=== PATIENT | male | born 1940 | race Caucasian/White ===

== ENCOUNTER → 2023-07-09 08:47 | Outpatient (REF) | payer OTHER, SELFPAY | LOC: WOUND 08:47 | PROVIDERS: ATTENDING PHYSICIAN Surgery Plastic and Reconstructive Surgery; REFERRING PHYSICIAN Family Medicine | DX: L89.153 Pressure ulcer of sacral region, stage 3 (principal); L89.613 Pressure ulcer of right heel, stage 3; L97.221 Non-pressure chronic ulcer of left calf limited to breakdown of skin | CPT/HCPCS: 97597; 97598; 99203 ==

== ENCOUNTER → 2023-08-19 10:27 | Outpatient (REF) | payer OTHER, SELFPAY | LOC: WOUND 10:27 | PROVIDERS: ATTENDING PHYSICIAN Surgery; REFERRING PHYSICIAN Family Medicine | DX: L89.153 Pressure ulcer of sacral region, stage 3 (principal); L89.614 Pressure ulcer of right heel, stage 4; L89.313 Pressure ulcer of right buttock, stage 3; L97.212 Non-pressure chronic ulcer of right calf with fat layer exposed | CPT/HCPCS: 11042; 11043; 11045; 11046 ==

== ENCOUNTER → 2023-08-26 13:07 | Outpatient (REF) | payer OTHER, SELFPAY | LOC: WOUND 13:07 | PROVIDERS: ATTENDING PHYSICIAN Surgery; REFERRING PHYSICIAN Family Medicine | DX: L89.153 Pressure ulcer of sacral region, stage 3 (principal); L89.614 Pressure ulcer of right heel, stage 4; L89.313 Pressure ulcer of right buttock, stage 3; L97.212 Non-pressure chronic ulcer of right calf with fat layer exposed | CPT/HCPCS: 11043 ==

== ENCOUNTER → 2023-09-02 14:13 | Outpatient (REF) | payer OTHER, SELFPAY | LOC: WOUND 14:13 | PROVIDERS: ATTENDING PHYSICIAN Surgery; REFERRING PHYSICIAN Family Medicine | DX: L89.153 Pressure ulcer of sacral region, stage 3 (principal); L89.614 Pressure ulcer of right heel, stage 4; L89.313 Pressure ulcer of right buttock, stage 3; L97.212 Non-pressure chronic ulcer of right calf with fat layer exposed | CPT/HCPCS: 11042; 11043; 87070; 87075; 87077; 87186; 87205 ==

== ENCOUNTER → 2023-09-09 09:34 | Outpatient (REF) | payer OTHER, SELFPAY | LOC: WOUND 09:34 | PROVIDERS: ATTENDING PHYSICIAN Surgery; FAMILY PHYSICIAN Family Medicine | DX: L89.153 Pressure ulcer of sacral region, stage 3 (principal); L89.614 Pressure ulcer of right heel, stage 4; L89.313 Pressure ulcer of right buttock, stage 3; L97.212 Non-pressure chronic ulcer of right calf with fat layer exposed | CPT/HCPCS: 11042; 11043; 97597; 97598 ==

== ENCOUNTER 2023-09-16 13:21 | Inpatient (IN) | payer OTHER, SELFPAY ==
[2023-09-16] VITALS (8 sets, daily range): BP systolic 108–150; BP diastolic 60–100; BMI 24.4; BMI 23.4
[2023-09-16 08:57] LABS: % Basophils 0.4 % (0-2); % Immature Granulocytes 0.7 % (0-0.5); % Lymphocytes 10.6 % (20.5-51.1); % Monocytes 16.8 % (1.7-9.3); % Neutrophils 62.5 % (42.2-75.2); Absolute Basophils 0.1 10^3/uL (0-0.2); Absolute Immature Granulocytes 0.1 10^3/uL (0-0.05); Absolute Lymphocytes 1.2 10^3/uL (1.2-3.4); Absolute Monocytes 1.9 10^3/uL (0.1-0.6); Hematocrit 32.1 % (39.0-52.0); Hemoglobin 10.5 g/dL (13.0-18.0); Mean Corp Hgb Conc. 32.7 g/dL (33.0-37.0); Mean Corpuscular Hgb 32.2 pg (27.0-31.0); Mean Corpuscular Volume 98.5 fL (80.0-94.0); Mean Platelet Volume 10.1 fL (7.4-10.4); Nucleated Red Blood Cells % 0 % (-); Platelet Count 272 10^3/uL (130-400); Red Blood Cell Count 3.26 10^6/uL (4.70-6.10); Red Cell Dist. Width 16.7 % (11.5-14.5); White Blood Cell Count 11.2 10^3/uL (4.8-10.8)
[2023-09-16 09:08] LABS: ALT (SGPT) 14 U/L (0-50); AST (SGOT) 31 U/L (17-59); Albumin 3.4 g/dl (3.5-5.0); Alkaline Phosphatase 127 U/L (38-126); Blood Urea Nitrogen 47 mg/dl (9-20); Calcium 9.7 mg/dl (8.4-10.2); Carbon Dioxide 22 mmol/L (22-30); Chloride 108 mmol/L (98-107); Estimated Creatinine Clearance 24 ml/min; Glucose 103 mg/dl (70-99); Potassium 4.6 mmol/L (3.5-5.1); Sodium 134 mmol/L (135-145); Total Bilirubin 0.6 mg/dl (0.2-1.3); Total Protein 6.2 g/dl (6.3-8.2); eGFR 29.17
[2023-09-16 09:45] LABS: Urine Albumin 1+ (Neg - Trace); Urine Bilirubin Negative (Negative); Urine Character Clear (Clear); Urine Color Yellow; Urine Glucose Negative (Negative); Urine Ketone Negative (Negative); Urine Leukocyte Negative (Negative); Urine Nitrite Negative (Negative); Urine Occult Blood 2+ (Negative); Urine Urobilinogen Negative (Neg - 1+)
[2023-09-16] MEDS: NSS 500 IV (10:05)
[2023-09-16 10:23] LABS: Urine Calcium Oxalate Crystals Present; Urine Mucus Few; Urine Squamous Cell 0-2 /LPF (Few)
[2023-09-16 10:24] LABS: Urine Bacteria Few (Negative); Urine White Cell 0-2 /HPF (0-5)
--- NOTE | 2023-09-16 12:03 | ED.GENMED ---
History of Present Illness
General
Chief Complaint: Weakness
Source: patient, spouse and family
Exam Limitations: none
Time Seen by Provider: 09/16/23 08:06
Nursing documentation reviewed up to this point in time: agreed with
Travel History
Have you had any contact with someone who has COVID-19?: No
Do you have any symptoms of coronavirus? Fever > 100 degrees, chills, cough, shortness of breath, sore throat, loss of taste or smell, muscle aches, or headache?: No
History of Present Illness
History of Present Illness:
82-year-old male with past medical history of hypertension, recent foot infection currently on vancomycin and cefepime via PICC line over the past 2 months presenting to the emergency department today with concerns of generalized weakness fatigue
which caused him to fall today also hit his head did not lose consciousness denies nausea vomiting does have Yuen bag symptoms denies fevers denies any noticeable worsening appearance of his foot wound.
Past History
Past History
ED Past Medical History: GERD, HTN and Other (GI bleed on Protonix)
Social History
Tobacco: Non-smoker
Alcohol: Daily
Personal:
Review of Systems
Review of Systems
Allergies reviewed?: Yes
All Other Systems: ROS reviewed and negative except as documented in HPI and ROS
Phy Exam
Physical Exam
Physical Exam:
GENERAL: Alert , in no apparent distress
EYE: pupils equal and reactive
NECK: Supple, no significant adenopathy.
ENT: o/p clr, mmm.
CARDIAC: Regular rate and rhythm .
LUNGS: Clear breath sounds bilaterally, no acute respiratory distress, no wheezes/rales/rhonchi
ABDOMEN: Soft, without focal tenderness, no r/g, no cvat
NEUROLOGICAL: Alert and oriented, no focal neuro deficits
SKIN: Warm and dry, skin intact.
MUSCULOSKELETAL: No edema, well perfused.
PSYCH: Normal and appropriate interaction.
Dressing of the foot clean dry and intact
Course
Orders/Labs/Results
Orders:
Orders
09/16/23 08:26
EKG [Electrocardiogram (*1)] Urgent
Reason for Study: Fatigue / Weakness
CT Head W/o Iv Contrast Urgent
Comment:
Reason For Exam: fal lhit head
09/16/23 08:27
EKG- Treatment ONCE
09/16/23 08:43
CBC/With Diff [Complete Blood Count/With Diff] Urgent
CMP [Comprehensive Metabolic Panel] Urgent
09/16/23 09:09
0.9% Sodium Chloride 500 ml [Nss] 500 ml IV BOLUS
09/16/23 09:21
Urinalysis Reflex To Culture Urgent
Date Specimen was Collected: 09/16/23
Time Specimen was Collected: 09:19
Urine Microscopic Reflex Cult Urgent
CXR Port [CR Chest Portable - 1 View] Urgent
Comment:
Reason For Exam: PICC line
Reason Study Needs to be Portable: Unable to Transport
Abnormal Lab Results
09/16/23 09/16/23
08:43 09:21
WBC 11.2 H 10^3/uL
(4.8-10.8)
RBC 3.26 L 10^6/uL
(4.70-6.10)
Hgb 10.5 L g/dL
(13.0-18.0)
Hct 32.1 L %
(39.0-52.0)
MCV 98.5 H fL
(80.0-94.0)
MCH 32.2 H pg
(27.0-31.0)
MCHC 32.7 L g/dL
(33.0-37.0)
RDW 16.7 H %
(11.5-14.5)
Abs Immat Gran (auto) 0.1 H 10^3/uL
(0-0.05)
Absolute Neuts (auto) 7.0 H 10^3/uL
(1.4-6.5)
Absolute Monos (auto) 1.9 H 10^3/uL
(0.1-0.6)
Absolute Eos (auto) 1.0 H 10^3/uL
(0-0.7)
Immature Gran % 0.7 H %
(0-0.5)
Lymphocytes % 10.6 L %
(20.5-51.1)
Monocytes % 16.8 H %
(1.7-9.3)
Eosinophils % 9.0 H %
(0-6)
Sodium 134 L mmol/L
(135-145)
Chloride 108 H mmol/L
(98-107)
BUN 47 H mg/dl
(9-20)
Creatinine 2.2 H mg/dL
(0.7-1.3)
Glucose 103 H mg/dl
(70-99)
Alkaline Phosphatase 127 H U/L
(38-126)
Total Protein 6.2 L g/dl
(6.3-8.2)
Albumin 3.4 L g/dl
(3.5-5.0)
Ur Occult Blood Reflex 2+ A
(Negative)
Urine RBC 3-6 A /HPF
(0-2)
Urine Bacteria (Reflex) Few A
(Negative)
Urine Albumin (Reflex) 1+ A
(Neg - Trace)
09/16/23 08:43
09/16/23 08:43
Vital Signs
Initial and Last Documented VS:
Initial Vital Signs
Temp Pulse Resp BP Pulse Ox
98.6 F 92 20 150/100 98
09/16/23 07:42 09/16/23 07:42 09/16/23 07:42 09/16/23 07:42 09/16/23 07:42
Last Documented Vital Signs
Temp Pulse Resp BP Pulse Ox
98.6 F 91 15 115/69 94
09/16/23 07:42 09/16/23 11:00 09/16/23 11:00 09/16/23 11:00 09/16/23 11:00
MDM/Problems Addressed
MDM/Problems Addressed:
82-year-old male presenting to the emergency department today with concerns of generalized weakness and fatigue trouble ambulating today fell hit his head denies loss of conscious denies chest pain shortness of breath on arrival here initial vital
signs normal patient no acute distress white count is 11.2 otherwise he was found to have significantly elevated creatinine level above his baseline by about double concerning for MATY was started on fluids. Otherwise no emergent findings on workup
head CT negative plan for admission due to MATY and significant generalized weakness and fatigue.
*Critical Care Note
Total Time (30-74mins, 75-104mins- exclusive of procedures): Not Applicable
ED Attending Note
-
Portions of this chart may have been created with voice recognition software.� Occasional wrong word or��sound alike� substitutions may have occurred due to the inherent limitations of voice recognition software.
Discharge Plan
Departure
Patient Disposition: Admit
Date of Disposition: 09/16/23
Time of Disposition: 12:05
Admit to: Med/Surg
Admit to doctor: Candelario
Presentation/result/management discussed w/ accepting MD/DO: Hospitalist
Patient with high blood pressure during this ER visit?: No
Condition: Good
Covid-19: Not Applicable
Discharge Problem:
MATY (acute kidney injury)
Prescriptions:
No Action
lisinopril-hydrochlorothiazide 20-12.5 mg tablet
1 tab PO DAILY
Hold Instructions: Until blood pressure greater than 140/90
gabapentin 100 mg Capsule
300 mg PO HS
oxycodone 5 mg tablet
5 mg PO Q8H PRN (Reason: Mod sev pain) Qty: 14 0RF
cefepime 2 gram recon soln
2 g IV Q12
Rx Instructions:
per : first dose 09/02/23 x 6 weeks
acetaminophen 325 mg tablet
650 mg PO QIDPRN PRN (Reason: pain )
vancomycin [Firvanq] 50 mg/mL recon soln
125 mg PO DAILY
Rx Instructions:
per : first dose 09/02/23 x 6 weeks
metoprolol succinate [Toprol XL] 25 mg tablet extended release 24 hr
12.5 mg PO BID
Dakin's Solution 0.125 % solution
1 applic topical BID
colchicine 0.6 mg capsule
0.6 mg PO QPM
pantoprazole 40 mg tablet,delayed release (DR/EC)
40 mg PO DAILY
Referrals:
Oscar Veronica DO [Family Provider] -
Interventions
Interventions:
*Risk Screen - Suicide Last Done: 09/16/23 07:42
*General Assessment Last Done: 09/16/23 07:42
*Neglect/Abuse Screening Last Done: 09/16/23 07:42
ED- Fall Risk Assessment Last Done: 09/16/23 07:42
*ED COVID-19 Vaccine History Last Done: 09/16/23 07:42
ED- Cardiac Assessment Last Done: 09/16/23 07:42
ED- Neurological Assessment Last Done: 09/16/23 07:42
ED- Pulmonary Assessment Last Done: 09/16/23 07:42
--- NOTE | 2023-09-16 12:23 | HPS.HSE ---
Addendum entered and electronically signed by Scot Cleary MD 09/16/23 13:16:
I saw and examined the patient.
The CLEAN ROOM ASSEMBLER or PA's note was reviewed and I agree with the note.
Comment: 82-year-old male who presents with chief complaints of weakness and fall.
118/62, 96, 14, 98.6 F, 99% RA
NAD, awake and alert
RRR, normal S1/S2
CTAB
CN2-12 intact, stuttering
WBC 11.2
Hb 10.5
Plt 272
Na 134, BUN 47, Cr 2.2
CT brain:
1. � No CT evidence for acute intracranial hemorrhage or scalp soft tissue hematoma.
2. � Moderate diffuse cerebral and cerebellar volume loss.
3. � Mild periventricular white matter leukoaraiosis.
4. � Small amount of layering complex fluid or hemorrhage in the posterior left sphenoid sinus.
CXR:
1. � Right upper extremity PICC line in place with the catheter tip projecting over the SVC.
2. � Moderate airspace consolidation in the basilar segments of the left lower lobe. Diagnostic possibilities are (1) left lower lobe pneumonia or (2) left lower lobe scarring/subsegmental atelectasis.
3. 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
MATY:
-Check bladder scan to determine if patient is retaining
-Check renal ultrasound
-Continue IV fluids
-Consult nephrology
-Cefepime can cause elevated BUN and creatinine and less than 1% of cases, infectious disease to see
h/o septic bursitis R shoulder:
-pt currently on IV Cefepime and PO Vanco (h/o C diff)
-Patient currently is not the best historian. He does mention that he has been on cefepime only for 3 days for a right heel wound.
-pt was seen by ID on prior admission, will c/s for abx management
Addendum entered and electronically signed by GARRETT Armenta 09/16/23 13:08:
MATY concern medication related
- Last dose of lisinopril/HCTZ was 09/15/2023 not May as patient stated
Original Note:
Family Physician
-
Family Physician: Oscar Veronica
Chief Complaint
-
Weakness, fall
History of Present Illness
82-year-old male complaining of generalized weakness with fatigue causing him to fall today at 5 AM. He reports his legs gave out when he went to stand up he denies head injury or LOC. He does report he is stumbling on his words. he denies any
fever, chills, decreased urine output, flank pain, abdominal pain, nausea, vomiting, diarrhea, chest pain, palpitations, headache, dizziness. He is currently on vancomycin and cefepime via PICC line for the past 2 months for septic bursitis of the
right shoulder.. Other past medical history includes hypertension, GI bleed, GERD, right heel/right buttocks/right calf decub ulcer July 14, 2023, pancreatic cyst, C. difficile, iron deficiency anemia
Medical History
Past Medical History
Past Medical History: Reports Other ( hypertension, pancreatic cyst, iron deficiency anemia, GERD, right heel decubitus ulcer, right buttocks, right calf ulcers, prior history of C. difficile)
Additional Past Medical History:
septic bursitis of the right shoulder June 2023
Past Surgical History: Reports Other (PICC line right upper arm)
Social History
Tobacco: Non-smoker
Alcohol: Occasional
Drug: None
Personal:
Living: With Family
Employment: Retired
Family History
Family History: Other (Mother cancer age 81 tumor on femur, father [place] age 64)
Allergies / Home Medications
Allergies reflects when Allergies were last updated in [employer].
Home Medications with original date entered in [employer]
Allergy/Medication List:
Allergies
Allergy/AdvReac Type Severity Reaction Status Date / Time
Penicillins Allergy Rash- Verified 07/02/23 12:35
tolerated
cefazolin
in 2016
Home Medications
lisinopril 20 mg-hydrochlorothiazide 12.5 mg tablet 1 tab PO DAILY Blood Pressure 06/22/22
gabapentin 100 mg capsule 300 mg PO HS Pain 04/03/23
oxycodone 5 mg tablet 5 mg PO Q8H PRN Mod sev pain #14 tabs 07/08/23
acetaminophen 325 mg tablet 650 mg PO QIDPRN PRN pain 09/16/23
cefepime 2 gram solution for injection 2 g IV Q12 Infection 09/16/23
colchicine 0.6 mg capsule 0.6 mg PO QPM Gout 09/16/23
metoprolol succinate 25 mg tablet,extended release 24 hr (Toprol XL) 12.5 mg PO BID Blood Pressure 09/16/23
pantoprazole 40 mg tablet,delayed release 40 mg PO DAILY Gastrointestinal Issue 09/16/23
sodium hypochlorite 0.125 % solution (Dakin's Solution) 1 applic topical BID right buttock & posterior leg/heel 09/16/23
vancomycin 50 mg/mL oral solution (Firvanq) 125 mg PO DAILY cdiff prophylaxis 09/16/23
Review of Systems
-
History Source: Patient
A 12 point ROS was completed and negative except as noted: Yes
Constitutional: Reports Fatigue; Denies Fever or Chills
EENT: Denies Sore Throat or Runny Nose
Respiratory: Denies Cough or Trouble Breathing
Cardiac: Denies Chest Pain, Diaphoresis, Palpitations or Syncope
Abdomen/GI: Denies Abdominal Pain, Nausea, Vomiting, Diarrhea, Bloody Stools or Black Stools
: Denies Dysuria, Frequency, Flank Pain, Incontinence, Difficulty Voiding or Urgency
Musculoskeletal: Denies Joint Pain or Edema
Skin: Reports Other (Chronic ulcers to right heel, stage I sacral decub); Denies Itching or Rash
Neurological: Reports Weakness; Denies Dizzy or Headache
Endocrine: Reports No Symptoms
Hematologic/Lymphatic: Reports No Symptoms
Psych: Reports Calm
Physical Exam
Vital Signs
Vital Signs
Temp Pulse Resp BP Pulse Ox
98.6 F 96 14 118/62 99
09/16/23 07:42 09/16/23 12:00 09/16/23 12:00 09/16/23 12:00 09/16/23 12:00
Physical Exam
General: Comfortable and Conversant; No Pain, Fever or Chills
HEENT: NormoCephalic and Anicteric
Genito-urinary: Deferred by me
Musculoskeletal: No Clubbing, No Cyanosis, No Edema and Other (Right shoulder nontender no effusion or erythema)
Skin: Ulcers (Chronic ulcers to right heel, stage I sacral decub) and IV/Catheter Site (PICC line present right upper extremity)
Neuro: AO x 3, Nonfocal/grossly intact, No Sensory Deficits and Other (3 out of 5 weakness to lower legs when lifting in bed, speech patient stumbles on words when spoken); No Facial Droop
Psych: Calm
Laboratory Results
-
09/16/23 08:43
09/16/23 08:43
Laboratory Results
Total Bilirubin 0.6 mg/dl (0.2-1.3) 09/16/23 08:43
AST 31 U/L (17-59) 09/16/23 08:43
ALT 14 U/L (0-50) 09/16/23 08:43
Alkaline Phosphatase 127 U/L (38-126) H 09/16/23 08:43
Impression/Plan
-
Impression/plan:
Admit to MedSurg
#MATY symptomatic concern of obst process
Creat 2.2 baseline 1.1
Follow BMP
-Hold lisinopril/HCTZ hastn taken since nov
bladder scan with post void residual
- check renal ultrasound
-Consult nephro
Check MRI brain Given weakness/ altered speech
EKG: Sinus rhythm with PVCs 78 bpm, QTc 435 MS
CXR: Right upper extremity PICC line in place.
Moderate airspace consolidation in the basilar segments of the left lower lobe possible left lower lobe pneumonia and/or lower lobe scarring.
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
CT head: No acute intracranial abnormality. Moderate diffuse cerebral and cerebellar volume loss
#Mechanical fall 2/2 to weakness
Pt/Ot case mgmt consult
# HX septic bursitis of the right shoulder
-Continue cefepime 2 g IV every 12 hours and oral vancomycin 125 mg via PICC line
-Continue oxycodone 5 mg every 8 hours as needed, gabapentin 300 mg at bedtime
- COnsult I/D
#Chronic anemia macrocytic
#Hx iron deficiency
Hgb 10.5 baseline appears 9.6
#GERD
#Hx GI bleed
-Continue Protonix 40 mg daily
#Gout
-Continue colchicine
DVT prophylaxis
Subcu heparin
DNR
--- NOTE | 2023-09-16 14:30 | CON.ID ---
Consultation
-
Date/Time Consultation Requested: 09/16/23 13:01
Date/Time Consultation Performed: 09/16/23 14:31
Requesting Provider: Vicente
Performing Provider: Dr Gagnon
Reason for Consultation: matilda is on iv abx x 2 months septic bursitis
Chief Complaint / Past History
Chief Complaint
weakness, fall
History of Present Illness
Mr Espinoza is an 82 year old male with history notable for multiple decubiti of the buttock, right nair and right heel, C difficile.
On 08/28 he was seen by my partner Dr Trice Almanza for right heel wound, a superficial cultures in June (about 1 month before) grew pseudomonas, he was referred to the wound care center, xray with concern for possible osteomyelitis, when seen in
ID clinic 08/28 wound with thick light green exudate and surrounding erythema, an MRI was done 08/26 'Severe active osteomyelitis throughout the majority of the calcaneus with overlying heel ulceration. Findings highly suggestive of tibiotalar joint
septic arthritis with likely acute on chronic destructive change' he was planned for a course of cefepime - received the first dose 08/29/23. last outpatient BMP was 09/09 and Cr was 0.95 at that time.
Then today he began to complain of weakness, fatigue. At 5 am he legs gave out when he went to stand - no loss of consciousness. Having difficulty concentrating and jerky movements. Denies any fever, chills, decreased urine output, flank pain,
abdominal pain, nausea, vomiting, diarrhea, chest pain, palpitations, headache, dizziness. Since arrival here he has been afebrile, bp stable, wbc 11.2, hgb 10.5, plt 272 down from 464 previously, eos 9.0% for AEC of 1000, Cr now 2.2 from baseline
of 1.2, t bili 0.6, ast 31, alt 14, alk phos 127, UA negative, renal US: unremarkable, cxr: PICC in plae - LLL pneumonia vs atelectasis/scarring, CT head: Small amount of layering complex fluid or hemorrhage in the posterior left sphenoid sinus.
2/ aerobic culture: pseudomonas, citrobacter, e faecalis and moderate mixed anaerobes, currently on cefepime and oral vancomycin, ID is consulted for assistance with management.
Past History
Additional Past Medical History:
hypertension, pancreatic cyst, iron deficiency anemia, GERD, right heel decubitus ulcer, right buttocks, right calf ulcers
Additional Past Surgical History:
septic bursitis s/p IR drainage x 2
Allergy History:
Penicillins Allergy (Verified 07/02/23 12:35)
Rash- tolerated cefazolin in 2016
Medications Reviewed: Yes
Social History
Tobacco: Non-Smoker
Alcohol: Occasional
Drug: None
Family History
Family History: Not Pertinent
Review of Systems
Review of Systems
General: Negative Fever or Chills
All systems: All other systems were reviewed and were negative
Vital Signs
Temp Pulse Resp BP Pulse Ox
98.6 F 96 14 118/62 99
09/16/23 07:42 09/16/23 12:00 09/16/23 12:00 09/16/23 12:00 09/16/23 12:00
Physical Exam
Physical Exam
Constitutional: No Acute Distress
Cardiovascular: Regular Rate and S1/S2; Negative Murmur or Rub
Pulmonary: Clear and Symmetric; Negative Wheezes, Rales or Rhonchi
Gastrointestinal: Soft, Non Tender, Non Distended and Normal Bowel Sounds
Skin: Warm and Dry; Negative Rash or Jaundice
Wound: Other (R ankle - probe to bone centrally- otherwise granulation tissue, some slough - no eschar; buttocks - granulation tissue - no erythema, warmth, tenderness or drainage)
Lab / Diagnostic Study Results
09/16/23 08:43
09/16/23 08:43
Abs Immat Gran (auto) 0.1 10^3/uL (0-0.05) H 09/16/23 08:43
Absolute Neuts (auto) 7.0 10^3/uL (1.4-6.5) H 09/16/23 08:43
Absolute Lymphs (auto) 1.2 10^3/uL (1.2-3.4) 09/16/23 08:43
Absolute Monos (auto) 1.9 10^3/uL (0.1-0.6) H 09/16/23 08:43
Absolute Basos (auto) 0.1 10^3/uL (0-0.2) 09/16/23 08:43
Immature Gran % 0.7 % (0-0.5) H 09/16/23 08:43
Neutrophils % 62.5 % (42.2-75.2) 09/16/23 08:43
Lymphocytes % 10.6 % (20.5-51.1) L 09/16/23 08:43
Monocytes % 16.8 % (1.7-9.3) H 09/16/23 08:43
Eosinophils % 9.0 % (0-6) H 09/16/23 08:43
Basophils % 0.4 % (0-2) 09/16/23 08:43
Ur Squamous Epith Cells 0-2 /LPF (Few) 09/16/23 09:21
Assessment / Plan
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
Eosinophilia
- on outpatient course of cefepime x6 weeks from 08/29/[address] Almanza
- last outpatient BMP was 09/09 and Cr was 0.95 at that time, AEC at that time 0.9
- AEC today 1000
- check urine eosinophils
- switched cefepime to meropenem renally dosed
- maintain PICC line
- wound care consult
- follow clinically
--- NOTE | 2023-09-16 16:36 | WOUNDNOTE ---
JUDITH GRIMALDO note: Patient admitted with fall, weakness
See H&P for complete history.
PMH:r rotator cuff tear, R shoulder bursitis with drainage in May, frequent falls, HTN,anemia, C diff, Pneumonia and unstageable PI wounds on R buttock, posterior leg and heel.
Wound Location and type/assessment: Patient admitted with: Unstageable PI wounds on R buttock, and right heel. Patient follows as outpatient at [facility] and ID. DILLAN Segovia recently completed appropriate wound care and all dressings maintained. Reviewed
pics from previous admissions and right posterior leg wounds are now closed. Right heel likely stage 4 with osteo and some pink tissue. Buttock has improved since prior assessment. Per , patient increasing weak, often confused. Intake good.
Appetite: Good, encouraged protein in diet.
Pressure redistribution devices in place: Static air overlay added to bed. Keep right heel off-loaded with air cushion or pillow under the calf (patient declines use of boot).
Plan: Continue daily dressing changes as ordered by [facility] (see orders). SPD called by this travel writer and Hydrogel ordered to patient room. Will confirm orders with hospitalist. DILLAN Segovia updated.
Updated care plan and will follow as needed.
Note to case management of equipment requested for discharge:air mattress.
Recommend follow up at wound care center upon discharge.
[2023-09-16] MEDS: MERREM 500 MG IV (17:19)
[2023-09-16] MEDS: STERILE WATER FOR INJECTION 10 ML IV (17:20)
[2023-09-16] MEDS: COLCHICINE 0.599999999999999978 MG PO (17:21)
[2023-09-16] MEDS: NSS 1000 IV (17:24)
--- NOTE | 2023-09-16 17:47 | W.CON.NEPH ---
Consultation
-
Date/Time Consultation Requested: 09/16/23 1300
Date/Time Consultation Performed: 09/16/23 1800
Requesting Provider: Scot Hemphill
Performing Provider: Rupal Santizo
Reason for Consultation: MATY
Medical History
-
Chief Complaint: s/p fall found MATY
History of Present Illness:
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
cefepime on 08/29/23 for pseudomonas grew from wound cultures presented with complaining of generalized weakness with fatigue causing him to fall today at 5 AM.� he denies head injury or LOC.�His baseline cr ws 0.9-1.1 and today noted at 2.2 hence
nephro consult.
note dto have jerky movements.� Denies any fever, chills, dysuria, abdominal pain, nausea, vomiting, diarrhea, chest pain, dizziness. �
Past Medical History
septic bursitis of the right shoulder June 2023, hypertension, pancreatic cyst, iron deficiency anemia, GERD, right heel decubitus ulcer, right buttocks, right calf ulcers, prior history of C. difficile
Social History
Tobacco: Non-Smoker
Alcohol: Occasional
Living: With Family
Employment: Retired
Family History
Mother cancer age 81 tumor on femur, father [place] age 64
Allergies / Home Medications
Allergy/AdvReac Type Severity Reaction Status Date / Time
Penicillins Allergy Rash- Verified 07/02/23 12:35
tolerated
cefazolin
in 2016
Medication Instructions Recorded Confirmed Type
lisinopril 20 1 tab PO DAILY Blood Pressure 06/22/22 09/16/23 History
mg-hydrochlorothiazide 12.5 mg
tablet
gabapentin 100 mg capsule 300 mg PO HS Pain 04/03/23 09/16/23 History
oxycodone 5 mg tablet 5 mg PO Q8H PRN Mod sev pain #14 07/08/23 09/16/23 Rx
tabs
acetaminophen 325 mg tablet 650 mg PO QIDPRN PRN pain 09/16/23 09/16/23 History
cefepime 2 gram solution for 2 g IV Q12 Infection 09/16/23 09/16/23 History
injection
colchicine 0.6 mg capsule 0.6 mg PO QPM Gout 09/16/23 09/16/23 History
metoprolol succinate 25 mg 12.5 mg PO BID Blood Pressure 09/16/23 09/16/23 History
tablet,extended release 24 hr
(Toprol XL)
pantoprazole 40 mg tablet,delayed 40 mg PO DAILY Gastrointestinal 09/16/23 09/16/23 History
release Issue
sodium hypochlorite 0.125 % 1 applic topical BID right buttock 09/16/23 09/16/23 History
solution (Dakin's Solution) & posterior leg/heel
vancomycin 50 mg/mL oral solution 125 mg PO DAILY cdiff prophylaxis 09/16/23 09/16/23 History
(Firvanq)
Review of Systems
-
All complete 12 point ROS inquired and found negative other than stated in HPI
Physical Exam
Vital Signs
Vital Signs
Temp Pulse Resp BP Pulse Ox
98.1 F 99 16 112/72 99
09/16/23 14:45 09/16/23 14:45 09/16/23 14:45 09/16/23 14:45 09/16/23 14:45
Lab Results
WBC 11.2 10^3/uL (4.8-10.8) H 09/16/23 08:43
RBC 3.26 10^6/uL (4.70-6.10) L 09/16/23 08:43
Hgb 10.5 g/dL (13.0-18.0) L 09/16/23 08:43
Hct 32.1 % (39.0-52.0) L 09/16/23 08:43
Plt Count 272 10^3/uL (130-400) 09/16/23 08:43
Sodium 134 mmol/L (135-145) L 09/16/23 08:43
Potassium 4.6 mmol/L (3.5-5.1) 09/16/23 08:43
Chloride 108 mmol/L (98-107) H 09/16/23 08:43
Carbon Dioxide 22 mmol/L (22-30) 09/16/23 08:43
BUN 47 mg/dl (9-20) H 09/16/23 08:43
Creatinine 2.2 mg/dL (0.7-1.3) H 09/16/23 08:43
eGFR 29.17 09/16/23 08:43
Glucose 103 mg/dl (70-99) H 09/16/23 08:43
Calcium 9.7 mg/dl (8.4-10.2) 09/16/23 08:43
Albumin 3.4 g/dl (3.5-5.0) L 09/16/23 08:43
Exams:� US Renal Only W/O Bladder
CPT: 56701
PROCEDURE: US Renal Only W/O Bladder
INDICATION: 82-year-old with acute kidney injury.
TECHNIQUE: Ultrasound evaluation of both kidneys was performed. Side Laster Tack grayscale and color Doppler images saved and recorded.
COMPARISON: CT from 04/03/2023
FINDINGS:
RIGHT kidney: Size measures 10.5 x 4.8 x 5.1 cm. No hydronephrosis, nephrolithiasis, or suspicious lesions.
LEFT kidney: Size measures 10.7 x 5.2 x 4.0 cm. No hydronephrosis, nephrolithiasis, or suspicious lesions.
IMPRESSION:
Unremarkable sonographic appearance of the kidneys.
CXR:
IMPRESSION:
1. � Right upper extremity PICC line in place with the catheter tip projecting over the SVC.
2. � Moderate airspace consolidation in the basilar segments of the left lower lobe. Diagnostic possibilities are (1) left lower lobe pneumonia or (2) left lower lobe scarring/subsegmental atelectasis.
3. 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
Physical Exam
General: Awake, Alert, Oriented and AOx3
HEENT: EOMI and Anicteric
Respiratory: Clear
Cardiac: S1/S2
Abdomen: Soft, Nontender and Nondistended
Musculoskeletal: No Cyanosis and Edema (rt 1+, left trace)
Neuro: Nonfocal/Grossly Intact
Assessment/Plan
-
IMP:
MATY
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
Eosinophilia
Mechanical fall 2/2 to weakness
h/o septic bursitis of the right shoulder
Hx iron deficiency anemia
GERD
Hx GI bleed
Gout
PLan:
A/w M fall, recently started on cefepime for OM
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
UA microhematuria-unchanged, no hydro on US, check U eosinophils
abx now changed to meropenem
hold ACEI, HCTZ
agree with IVF
BP stable
meds renally dose, may need to hold colchicine if cr increases
Data Reviewed
-
Radiology: Report Reviewed by me
MRI: Report Reviewed by me
Labs: Labs Reviewed by me and Discussed with Patient
[2023-09-16 18:06] LABS: Body Fluid for Eosinophils No Eosinophils seen
[2023-09-16 18:36] LABS: Urine Protein 85 mg/dl (0-12); Urine Sodium 60 mmol/L (30-90)
[2023-09-16] MEDS: TOPROL XL 12.5 MG PO (21:32)
[2023-09-16] MEDS: HEPARIN 5000 UNITS SC (21:33)
[2023-09-16] MEDS: NEURONTIN 300 MG PO (21:33)
[2023-09-17 04:57] LABS: % Basophils 0.6 % (0-2); % Eosinophils 10.6 % (0-6); % Immature Granulocytes 0.6 % (0-0.5); % Monocytes 16.2 % (1.7-9.3); Absolute Basophils 0.1 10^3/uL (0-0.2); Absolute Immature Granulocytes 0.1 10^3/uL (0-0.05); Absolute Lymphocytes 1.5 10^3/uL (1.2-3.4); Absolute Monocytes 1.5 10^3/uL (0.1-0.6); Absolute Neutrophils 5.1 10^3/uL (1.4-6.5); Hemoglobin 9.9 g/dL (13.0-18.0); Mean Corpuscular Volume 97.1 fL (80.0-94.0); Mean Platelet Volume 9.5 fL (7.4-10.4); Nucleated Red Blood Cells % 0 % (-); Platelet Count 246 10^3/uL (130-400); Red Blood Cell Count 3.09 10^6/uL (4.70-6.10); Red Cell Dist. Width 16.7 % (11.5-14.5); White Blood Cell Count 9.1 10^3/uL (4.8-10.8)
[2023-09-17 05:23] LABS: ALT (SGPT) 11 U/L (0-50); AST (SGOT) 25 U/L (17-59); Albumin 2.7 g/dl (3.5-5.0); Alkaline Phosphatase 103 U/L (38-126); Blood Urea Nitrogen 50 mg/dl (9-20); Calcium 9.8 mg/dl (8.4-10.2); Carbon Dioxide 25 mmol/L (22-30); Chloride 107 mmol/L (98-107); Estimated Creatinine Clearance 24 ml/min; Glucose 108 mg/dl (70-99); Potassium 4.1 mmol/L (3.5-5.1); Sodium 138 mmol/L (135-145); Total Bilirubin 0.5 mg/dl (0.2-1.3); Total Protein 5.4 g/dl (6.3-8.2); eGFR 29.17
[2023-09-17] MEDS: MERREM 500 MG IV ×2 (06:08→17:52)
[2023-09-17] MEDS: STERILE WATER FOR INJECTION 10 ML IV ×2 (06:08→17:52)
[2023-09-17 07:24] VITALS: BP 123/77
[2023-09-17] MEDS: TOPROL XL 12.5 MG PO ×2 (07:47→20:08)
[2023-09-17] MEDS: PROTONIX 40 MG PO (07:47)
[2023-09-17] MEDS: HEPARIN 5000 UNITS SC ×2 (07:47→20:07)
[2023-09-17] MEDS: DAKIN'S SOLUTION 0.125% 1/4 STRENGTH 473 ML TOPICAL (08:01)
[2023-09-17] MEDS: FIRVANQ 125 MG PO (08:01)
--- NOTE | 2023-09-17 09:26 | W.PN.HOSP.TC ---
Today's Communication/Plan
-
see bold
Assessment / Plan
Assessment / Plan
Gen: NAD, Awake and alert
Eyes: EOMI, PERRLA, no scleral icterus.
Neck: supple.
CV: remains RRR, +S1/S2, no m/r/g.
Resp: CTAB, no rales, wheezes, or rhonchi.
Abd: +BS, soft, NT, ND
Skin: No rashes.
Neuro: remains CN 2-12 intact, non-focal.
Psych: Normal mood and affect.
CT brain:
1. � No CT evidence for acute intracranial hemorrhage or scalp soft tissue hematoma.
2. � Moderate diffuse cerebral and cerebellar volume loss.
3. � Mild periventricular white matter leukoaraiosis.
4. � Small amount of layering complex fluid or hemorrhage in the posterior left sphenoid sinus.
CXR:
1. � Right upper extremity PICC line in place with the catheter tip projecting over the SVC.
2. � Moderate airspace consolidation in the basilar segments of the left lower lobe. Diagnostic possibilities are (1) left lower lobe pneumonia or (2) left lower lobe scarring/subsegmental atelectasis.
3. 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
MRI brain: No MRI evidence for an acute infarct.
Renal U/S: Unremarkable sonographic appearance of the kidneys.
MATY:
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
-Cefepime can cause elevated BUN and creatinine and less than 1% of cases, now on Meropenem
-renal ultrasound unremarkable as above
-Continue IVFs
-renal following
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
-also h/o septic bursitis R shoulder
-was on Cefepime (08/29/23-10/10/23) as per ID. Now switched to Meropenem.
-cont PO Vanco (h/o C diff)
Other problems:
Chronic anemia: Hb stable
GERD: cont PPI
h/o GI bleed
Gout: Continue colchicine
DNR/heparin
Anticipated Discharge: > 48 hours
Subjective/Interval History
-
Date of Service: September 17, 2023
Objective Data
-
Labs:
Laboratory Results
09/17/23
04:48
WBC 9.1
Hgb 9.9 L
Hct 30.0 L
Plt Count 246
Sodium 138
Potassium 4.1
Chloride 107
Carbon Dioxide 25
BUN 50 H
Creatinine 2.2 H
Glucose 108 H
Calcium 9.8
Total Bilirubin 0.5
AST 25
ALT 11
Alkaline Phosphatase 103
Vital Signs:
Vital Signs
Temp Pulse Resp BP Pulse Ox
97.2 F 86 18 123/77 86
09/17/23 07:24 09/17/23 07:24 09/17/23 07:24 09/17/23 07:24 09/17/23 07:24
I&O
09/16/23 09/17/23 09/18/23
06:59 06:59 06:59
Intake Total 960 / 960
Output Total 450 / 450
Balance 510 / 510
[2023-09-17 09:51] VITALS: BP 113/63; PULSE 83; O2SAT 99
[2023-09-17 09:57] VITALS: BP 113/63; PULSE 82; O2SAT 98
[2023-09-17] MEDS: NSS 1000 IV (10:15)
--- NOTE | 2023-09-17 11:14 | W.PN.NEPH.PH ---
Today's Communication / Plan
-
complete IVF
check serologies
Assessment/Plan
-
IMP:
MATY
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
Eosinophilia
Mechanical fall 2/2 to weakness
h/o septic bursitis of the right shoulder
Hx iron deficiency anemia
GERD
Hx GI bleed
Gout
PLan:
A/w M fall, recently started on cefepime for OM
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
UA microhematuria-unchanged, no hydro on US,sub nephrotic proteinuria 2.5gm/gm of cr
check serologies and paraprotein w/u
abx now changed to meropenem
hold ACEI, HCTZ
can stop IVF after current bag
BP stable
follow h/h
meds renally dose, may need to hold colchicine if cr increases
-
-
Date of Service: September 17, 2023
CC / HPI / ROS
-
Chief Complaint:
MATY
History of Present Illness:
cr no change at 2.2, BUN up 53
Bp stable
brain MRI neg
Review of Systems:
no cp or sob
pain left knee and rt shoulder
no fever
Labs
-
Labs:
WBC 9.1 10^3/uL (4.8-10.8) 09/17/23 04:48
RBC 3.09 10^6/uL (4.70-6.10) L 09/17/23 04:48
Hgb 9.9 g/dL (13.0-18.0) L 09/17/23 04:48
Hct 30.0 % (39.0-52.0) L 09/17/23 04:48
Plt Count 246 10^3/uL (130-400) 09/17/23 04:48
Sodium 138 mmol/L (135-145) 09/17/23 04:48
Potassium 4.1 mmol/L (3.5-5.1) 09/17/23 04:48
Chloride 107 mmol/L (98-107) 09/17/23 04:48
Carbon Dioxide 25 mmol/L (22-30) 09/17/23 04:48
BUN 50 mg/dl (9-20) H 09/17/23 04:48
Creatinine 2.2 mg/dL (0.7-1.3) H 09/17/23 04:48
eGFR 29.17 09/17/23 04:48
Glucose 108 mg/dl (70-99) H 09/17/23 04:48
Calcium 9.8 mg/dl (8.4-10.2) 09/17/23 04:48
Albumin 2.7 g/dl (3.5-5.0) L 09/17/23 04:48
Physical Exam
-
Vital Signs:
Vital Signs
Temp Pulse Resp BP Pulse Ox
97.2 F 86 18 123/77 86
09/17/23 07:24 09/17/23 07:24 09/17/23 07:24 09/17/23 07:24 09/17/23 07:24
Cardiovascular:: Regular rate and rhythm
Respiratory:: Bilateral: CTA
Lung Excursion:: Normal
Abdomen:: Nontender and Soft
Extremity Edema:: None: Bilateral:
Yuen Catheter: No
--- NOTE | 2023-09-17 13:56 | CM ---
Reviewed chart, met with patient to obtain information for assessment. Patient stated that he lives at home with his , son, daughter in law and grandkids. [facility]. Patient stated that his children
are creating a first floor set up for him and he hopes that it is done by mid-September. Patient relayed that his home is two stories. One step to enter.
Patient admitted to having some difficulty with ADLs and personal care. He stated that his usually assists with dressing and supervises bathing. He ambulates with a cane but has a walker for longer distances.
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 His and children are able to do it. Patient does not drive but his is able to take him to his appointments.
Patient stated that he is current with [facility] and wants tammi. Will send referral.
Patient really stated firmly that he would like to return home and does not want to go back to rehab. Will watch for PT/OT needs.
Plan: Case management will continue to follow and assist with discharge planning. Tentative Home.
[2023-09-17 15:39] VITALS: BMI 23.4
[2023-09-17 15:40] VITALS: BP 138/79
--- NOTE | 2023-09-17 16:49 | W.PN.ID1 ---
Date of Service
Date of Service: September 17, 2023
Today's Communication
continue meropenem
follow renal function
Assessment / Plan
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
Eosinophilia
AIN
- continue meropenem renally dosed for 6 week course from 08/29
- maintain PICC line
- wound care consult
- follow clinically
Chief Complaint
-: Other (osteomyelitis)
Subjective / Review of Systems
afebrile
bp stable
leukocytosis resolved
eosinophilia persists
cr stable
mrsa screen negative
urine eosinphilis negative
Vital Signs / Physical Exam
Vital Signs
Vital Signs
Temp Pulse Resp BP Pulse Ox
98.1 F 81 18 138/79 100
09/17/23 15:40 09/17/23 15:40 09/17/23 15:40 09/17/23 15:40 09/17/23 15:40
Physical Exam
Constitutional: No Acute Distress
Cardiovascular: Regular Rate and S1/S2; Negative Murmur or Rub
Pulmonary: Clear and Symmetric; Negative Wheezes or Rales
Gastrointestinal: Soft, Non Tender, Non Distended and Normal Bowel Sounds
Genito-Urinary: Negative Suprapubic Tenderness or CVA Tenderness
Skin: Warm and Dry; Negative Rash or Jaundice
Objective Data
Lab Data
Lab Results
09/17/23 04:48
09/17/23 04:48
Estimated Creat Clear 24 ml/min 09/17/23 04:48
Total Bilirubin 0.5 mg/dl (0.2-1.3) 09/17/23 04:48
AST 25 U/L (17-59) 09/17/23 04:48
ALT 11 U/L (0-50) 09/17/23 04:48
Alkaline Phosphatase 103 U/L (38-126) 09/17/23 04:48
Most recent labs reviewed.
Micro Results:
09/17/23 06:15 MRSA Screen - Pending
Nose
[2023-09-17] MEDS: TYLENOL 650 MG PO (20:27)
[2023-09-17] MEDS: NEURONTIN 300 MG PO (21:30)
[2023-09-17 23:51] VITALS: BP 116/65
[2023-09-18] MEDS: NSS IV (04:35)
[2023-09-18 05:18] LABS: % Basophils 0.7 % (0-2); % Eosinophils 12.3 % (0-6); % Immature Granulocytes 0.4 % (0-0.5); % Lymphocytes 23.4 % (20.5-51.1); % Monocytes 17.3 % (1.7-9.3); % Neutrophils 45.9 % (42.2-75.2); Absolute Basophils 0.1 10^3/uL (0-0.2); Absolute Lymphocytes 1.9 10^3/uL (1.2-3.4); Absolute Monocytes 1.4 10^3/uL (0.1-0.6); Absolute Neutrophils 3.7 10^3/uL (1.4-6.5); Hematocrit 28.8 % (39.0-52.0); Hemoglobin 9.5 g/dL (13.0-18.0); Mean Corpuscular Hgb 33.1 pg (27.0-31.0); Mean Corpuscular Volume 100.3 fL (80.0-94.0); Mean Platelet Volume 10.4 fL (7.4-10.4); Nucleated Red Blood Cells % 0 % (-); Platelet Count 232 10^3/uL (130-400); Red Blood Cell Count 2.87 10^6/uL (4.70-6.10); Red Cell Dist. Width 16.7 % (11.5-14.5); White Blood Cell Count 8.1 10^3/uL (4.8-10.8)
[2023-09-18 05:43] LABS: ALT (SGPT) 10 U/L (0-50); AST (SGOT) 28 U/L (17-59); Albumin 2.7 g/dl (3.5-5.0); Alkaline Phosphatase 97 U/L (38-126); Blood Urea Nitrogen 53 mg/dl (9-20); Calcium 9.6 mg/dl (8.4-10.2); Carbon Dioxide 21 mmol/L (22-30); Chloride 110 mmol/L (98-107); Estimated Creatinine Clearance 27 ml/min; Glucose 93 mg/dl (70-99); Potassium 4.2 mmol/L (3.5-5.1); Sodium 139 mmol/L (135-145); Total Bilirubin 0.5 mg/dl (0.2-1.3); Total Protein 5.2 g/dl (6.3-8.2); eGFR 32.71
[2023-09-18] MEDS: MERREM 500 MG IV (06:10)
[2023-09-18] MEDS: STERILE WATER FOR INJECTION 10 ML IV (06:12)
[2023-09-18 07:00] VITALS: BP 125/71
[2023-09-18] MEDS: TOPROL XL 12.5 MG PO (08:24)
[2023-09-18] MEDS: PROTONIX 40 MG PO (08:24)
[2023-09-18] MEDS: HEPARIN 5000 UNITS SC (08:24)
[2023-09-18] MEDS: FIRVANQ 125 MG PO (08:27)
[2023-09-18] MEDS: DAKIN'S SOLUTION 0.125% 1/4 STRENGTH 473 ML TOPICAL (08:27)
--- NOTE | 2023-09-18 11:29 | W.PN.HOSP.TC ---
Today's Communication/Plan
-
d/c
Assessment / Plan
Assessment / Plan
Gen: NAD, Awake and alert
Eyes: EOMI, PERRLA, no scleral icterus.
Neck: supple.
CV: remains RRR, +S1/S2, no m/r/g.
Resp: CTAB, no rales, wheezes, or rhonchi.
Abd: +BS, soft, NT, ND
Skin: No rashes.
Neuro: remains CN 2-12 intact, non-focal.
Psych: Normal mood and affect.
CT brain:
1. � No CT evidence for acute intracranial hemorrhage or scalp soft tissue hematoma.
2. � Moderate diffuse cerebral and cerebellar volume loss.
3. � Mild periventricular white matter leukoaraiosis.
4. � Small amount of layering complex fluid or hemorrhage in the posterior left sphenoid sinus.
CXR:
1. � Right upper extremity PICC line in place with the catheter tip projecting over the SVC.
2. � Moderate airspace consolidation in the basilar segments of the left lower lobe. Diagnostic possibilities are (1) left lower lobe pneumonia or (2) left lower lobe scarring/subsegmental atelectasis.
3. 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
MRI brain: No MRI evidence for an acute infarct.
Renal U/S: Unremarkable sonographic appearance of the kidneys.
MATY:
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
-renal ultrasound unremarkable as above
-was on IVFs, now off
-ANIBAL/ANCAs/SPEP/UPEP pending
-renal following and has cleared for discharge. Recheck Cr in 1 week.
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
-also h/o septic bursitis R shoulder
-was on Cefepime (08/29/23-10/10/23) as per ID. Now switched to Meropenem through 10/09/23.
-cont PO Vanco (h/o C diff)
Other problems:
Chronic anemia: Hb stable
GERD: cont PPI
h/o GI bleed
Gout: Continue colchicine
DNR/heparin
Medically stable for discharge. Case management aware.
Total time spent on d/c = 35 min. This included today's physical exam, progress note, review of laboratory and diagnostic data, preparation of discharge documents and prescriptions, and discussions about the pt's hospital course and discharge plan
with the patient and other medical malpractice paralegal involved in the patient's care.
Anticipated Discharge: Today
Subjective/Interval History
-
Date of Service: September 18, 2023
'I feel better! I am talking better and I am moving my arms better! It was definitely the medicine.'
Objective Data
-
Labs:
Laboratory Results
09/18/23
04:36
WBC 8.1
Hgb 9.5 L
Hct 28.8 L
Plt Count 232
Sodium 139
Potassium 4.2
Chloride 110 H
Carbon Dioxide 21 L
BUN 53 H
Creatinine 2.0 H
Glucose 93
Calcium 9.6
Total Bilirubin 0.5
AST 28
ALT 10
Alkaline Phosphatase 97
Vital Signs:
Vital Signs
Temp Pulse Resp BP Pulse Ox
97.5 F 71 18 125/71 97
09/18/23 07:00 09/18/23 07:00 09/18/23 07:00 09/18/23 07:00 09/18/23 07:00
I&O
09/17/23 09/18/23 09/19/23
06:59 06:59 06:59
Intake Total 960 / 960 1460 / 1460
Output Total 450 / 450 200 / 200
Balance 510 / 510 1260 / 1260
--- NOTE | 2023-09-18 11:50 | CM ---
Addendum entered by Sierra Hime, [facility] 09/18/23 14:14:
Received confirmation from Madeline from [facility] that patient is all set up for new ABX and will be delivered tonight therefore patient can go. Per Madeline, patient's aware of discharge plan.
Addendum entered by Sierra HimeFORMERLY [facility] 09/18/23 13:08:
Received script and messge from ID that patient needs new abx. Placed a call to [facility] and spoke with Madeline who stated that patient is known to them and requested, the script, the latest ID note and lab results. Will fax over.
Placed a call to patient's to update that patient won't be cleared for discharge until after [facility] receives all they need.
Addendum entered by Sierra DuranFORMERLY [facility] 09/18/23 12:18:
Placed a call to [facility] liason, Kayla, to update that referral was sent. She stated that she will call if she needs further information.
Addendum entered by Sierra Duran [facility] 09/18/23 12:05:
Patient stated that he would prefer [facility]'. Will send tammi referral.
Addendum entered by Sierra Duran [facility] 09/18/23 11:56:
Imm provided.
Original Note:
Received notification from attending that patient is medically stable for discharge. Placed a call to patient's who confirmed that she can take patient home. She requested VN. Attending agreeable to putting in order.
Spoke with liasonJacquelyn to update that family asking for DH instead of [facility]. She stated that she can accept referral and that [facility] would need to sign off on their end.
IMM provided.
Plan: Case management will continue to follow and assist with discharge planning. Home with VN services through .
--- NOTE | 2023-09-18 12:15 | W.PN.ID1 ---
Date of Service
Date of Service: September 18, 2023
Today's Communication
stable for dc when home IV set up new script to transplant case manager
Assessment / Plan
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
Eosinophilia
AIN
- continue meropenem renally dosed for 6 week course from 08/29
- maintain PICC line
- weekly labs while on IV therapy - to be sent to Dr Almanza
- wound care consult
- follow up with Dr Almanza outpatient
Chief Complaint
-: Other (osteomyelitis)
Subjective / Review of Systems
afebrile
bp stable
complaining of difficulty with word finding - common in the elderly
otherwise well
Vital Signs / Physical Exam
Vital Signs
Vital Signs
Temp Pulse Resp BP Pulse Ox
97.5 F 71 18 125/71 97
09/18/23 07:00 09/18/23 07:00 09/18/23 07:00 09/18/23 07:00 09/18/23 07:00
Physical Exam
Constitutional: No Acute Distress
Cardiovascular: Regular Rate and S1/S2; Negative Murmur or Rub
Pulmonary: Clear and Symmetric; Negative Wheezes or Rales
Gastrointestinal: Soft, Non Tender, Non Distended and Normal Bowel Sounds
Skin: Warm and Dry; Negative Rash or Jaundice
Objective Data
Lab Data
Lab Results
09/18/23 04:36
09/18/23 04:36
Estimated Creat Clear 27 ml/min 09/18/23 04:36
Total Bilirubin 0.5 mg/dl (0.2-1.3) 09/18/23 04:36
AST 28 U/L (17-59) 09/18/23 04:36
ALT 10 U/L (0-50) 09/18/23 04:36
Alkaline Phosphatase 97 U/L (38-126) 09/18/23 04:36
Most recent labs reviewed.
Micro Results:
09/17/23 06:15 MRSA Screen - Final
Nose No Methicillin Resistant Staphylococcus aureus isolated.
Care Review
Plan reviewed with: Physician (Dr Madiha root)
--- NOTE | 2023-09-18 12:56 | W.PN.NEPH.PH ---
Today's Communication / Plan
-
- d/c planning
Assessment/Plan
-
IMP:
MATY
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
Eosinophilia
Mechanical fall 2/2 to weakness
h/o septic bursitis of the right shoulder
Hx iron deficiency anemia
GERD
Hx GI bleed
Gout
PLan:
A/w M fall, recently started on cefepime for OM
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
UA microhematuria-unchanged, no hydro on US, sub nephrotic proteinuria 2.5gm/gm of cr
check serologies and paraprotein w/u - pending
abx now changed to meropenem
hold ACEI, HCTZ
off IVF now
BP stable
follow h/h
meds renally dose, d/c colchicine
-
-
Date of Service: September 18, 2023
CC / HPI / ROS
-
Chief Complaint:
MATY
History of Present Illness:
cr improved at 2, BUN up 53
Bp stable
brain MRI neg
Review of Systems:
no cp or sob
pain left knee and rt shoulder
no fever
Labs
-
Labs:
WBC 8.1 10^3/uL (4.8-10.8) 09/18/23 04:36
RBC 2.87 10^6/uL (4.70-6.10) L 09/18/23 04:36
Hgb 9.5 g/dL (13.0-18.0) L 09/18/23 04:36
Hct 28.8 % (39.0-52.0) L 09/18/23 04:36
Plt Count 232 10^3/uL (130-400) 09/18/23 04:36
Sodium 139 mmol/L (135-145) 09/18/23 04:36
Potassium 4.2 mmol/L (3.5-5.1) 09/18/23 04:36
Chloride 110 mmol/L (98-107) H 09/18/23 04:36
Carbon Dioxide 21 mmol/L (22-30) L 09/18/23 04:36
BUN 53 mg/dl (9-20) H 09/18/23 04:36
Creatinine 2.0 mg/dL (0.7-1.3) H 09/18/23 04:36
eGFR 32.71 09/18/23 04:36
Glucose 93 mg/dl (70-99) 09/18/23 04:36
Calcium 9.6 mg/dl (8.4-10.2) 09/18/23 04:36
Albumin 2.7 g/dl (3.5-5.0) L 09/18/23 04:36
Physical Exam
-
Vital Signs:
Vital Signs
Temp Pulse Resp BP Pulse Ox
97.5 F 71 18 125/71 97
09/18/23 07:00 09/18/23 07:00 09/18/23 07:00 09/18/23 07:00 09/18/23 07:00
Cardiovascular:: Regular rate and rhythm
Respiratory:: Bilateral: CTA
Lung Excursion:: Normal
Abdomen:: Nontender and Soft
Bowel Sounds:: Normal
Extremity Edema:: None: Bilateral:
Yuen Catheter: No
--- NOTE | 2023-09-18 12:59 | VNURNOTE ---
[facility] liason received information that patient wanted to switch VN agencies. He has [facility] currently. [facility] met with patient to explain [facility] services and instructed him he will need to call to cancel [facility] nurses first. Patient did not want
to call them and stated he will stay with [facility].
--- NOTE | 2023-09-18 14:08 | W.DCSUMMARY ---
Discharge Summary
Discharge Data
Date of Admission: 09/16/23
Date of Discharge: 09/18/23
-
Pending Results: Yes
Additional Pending Results:
ANIBAL/ANCAs/SPEP/UPEP
Hospital Course
Primary diagnoses:
Acute kidney injury due to acute interstitial nephritis due to cefepime
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
Secondary diagnoses:
Chronic anemia
Gastroesophageal reflux disease
h/o gastrointestinal bleed
Gout
Consultants:
Nephrology
Infectious disease
Imaging:
CT brain:
1. � No CT evidence for acute intracranial hemorrhage or scalp soft tissue hematoma.
2. � Moderate diffuse cerebral and cerebellar volume loss.
3. � Mild periventricular white matter leukoaraiosis.
4. � Small amount of layering complex fluid or hemorrhage in the posterior left sphenoid sinus.
CXR:
1. � Right upper extremity PICC line in place with the catheter tip projecting over the SVC.
2. � Moderate airspace consolidation in the basilar segments of the left lower lobe. Diagnostic possibilities are (1) left lower lobe pneumonia or (2) left lower lobe scarring/subsegmental atelectasis.
3. 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
MRI brain: No MRI evidence for an acute infarct.
Renal U/S: Unremarkable sonographic appearance of the kidneys.
82-year-old male who presented with chief complaints of weakness and fall and was found to be in acute kidney injury as outlined in the H&P done on admission. Hospital course by problem list:
Acute kidney injury due to acute interstitial nephritis due to cefepime: Patient had eosinophilia and likely had AIN due to Cefepime. Imaging above. The patient received IV fluids he was transitioned to meropenem with significant clinical
improvement. Nephrology is on consultation. He was cleared for discharge. He will need a recheck of his creatinine in 1 week. ANIBAL/ANCAs/SPEP/UPEP are pending at the time of discharge.
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 The patient previously was scheduled to be on Cefepime (08/29/23-10/10/23) as per ID.�He was switched to
Meropenem through 10/09/23. Prophylactic oral vancomycin was continued for history of C. difficile colitis.
Discharge Plan
-
Patient Disposition: Home with Home Care
Discharge Diagnosis/Procedures: Acute kidney injury due to acute interstitial nephritis due to cefepime
Condition: Good
Diet: Other diet
Additional Diets: Heart healthy
Activity: As tolerated
Driving Restrictions: As prior to admission
Blood Work: BMP in 1 week, prescription from PCP
Activity Restrictions/Additional Instructions:
Wound Care Instructions Buttock Wound- Clean with normal saline or soap and water. Apply Hydrogel to wound base. Apply alginate to open, draining areas. Cover with silicone border foam. Change daily and PRN if loose or soiled.
Right heel wound- Clean with 1/4 strength Dakins. Apply alginate and silicone border foam. Change daily an PRN if loose or soiled.
Follow up at wound care center call for an appointment.
Referrals:
Oscar Veronica, DO [Family Provider] - in less than 1 week
Prescriptions:
New
meropenem 1 gram Recon Soln
1,000 mg IV Q12H Qty: 0 0RF
Rx Instructions:
through 10/09/23
Continued
gabapentin 100 mg Capsule
300 mg PO HS
oxycodone 5 mg tablet
5 mg PO Q8H PRN (Reason: Mod sev pain) Qty: 14 0RF
acetaminophen 325 mg tablet
650 mg PO QIDPRN PRN (Reason: pain )
vancomycin [Firvanq] 50 mg/mL recon soln
125 mg PO DAILY
Rx Instructions:
per : first dose 09/02/23 x 6 weeks
metoprolol succinate [Toprol XL] 25 mg tablet extended release 24 hr
12.5 mg PO BID
Dakin's Solution 0.125 % solution
1 applic topical BID
pantoprazole 40 mg tablet,delayed release (DR/EC)
40 mg PO DAILY
Discontinued
lisinopril-hydrochlorothiazide 20-12.5 mg tablet
1 tab PO DAILY
Hold Instructions: Until blood pressure greater than 140/90
cefepime 2 gram recon soln
2 g IV Q12
Rx Instructions:
per : first dose 09/02/23 x 6 weeks
colchicine 0.6 mg capsule
0.6 mg PO QPM
Discharge Orders:
Discharge Patient (As Directed); Ordered 09/18/23
Ordered By: Scot Cleary
[2023-09-18 15:00] VITALS: BP 154/74
[2023-09-19 05:15] LABS: Complement C3 99 mg/dl (88-165)
[2023-09-20 01:10] LABS: ANA, IgG Reflex to HEp-2 None Detected (None Detected)
[2023-09-20 11:08] LABS: Myeloperoxidase Antibody 0 AU/mL (0-19); Serine Protease-3, IgG 0 AU/mL (0-19)
[2023-09-20 20:04] LABS: 24 Hour Urine Total Volume Random mL; Urine Collection Length Random hr; Urine Free Kappa Light Chains 625.95 mg/L (0.00-32.90); Urine Free Lambda Light Chains 193.24 mg/L (0.00-3.79)
[2023-09-21 02:05] LABS: Albumin 2.92 g/dL (3.75-5.01); Alpha 1 Globulin 0.34 g/dL (0.19-0.46); SPEP IFE Reflex Not Done; Total Protein-Electrophoresis 5.3 g/dL (6.3-8.2)
== END 2023-09-18 17:07 | disposition home health service (06) | DRG 698 ==
LOC: 3 WEST ACU 13:21
PROVIDERS: Clinical Nurse Specialist Family Health; Physician Assistant; ADMITTING PHYSICIAN Internal Medicine; CONSULT PHYSICIAN Internal Medicine; CONSULT PHYSICIAN Student in an Organized Health Care Education/Training Program; EMERGENCY PHYSICIAN Emergency Medicine; FAMILY PHYSICIAN Family Medicine
DX: N14.19 Nephropathy induced by other drugs, medicaments and biological substances (principal); L89.614 Pressure ulcer of right heel, stage 4; J98.11 Atelectasis; K86.2 Cyst of pancreas; M86.9 Osteomyelitis, unspecified; M00.9 Pyogenic arthritis, unspecified; N17.9 Acute kidney failure, unspecified; T36.1X5A Adverse effect of cephalosporins and other beta-lactam antibiotics, initial encounter; N17.8 Other acute kidney failure; I10 Essential (primary) hypertension; K21.9 Gastro-esophageal reflux disease without esophagitis; W01.10XA Fall on same level from slipping, tripping and stumbling with subsequent striking against unspecified object, initial encounter; Y93.9 Activity, unspecified; Y92.9 Unspecified place or not applicable; R53.83 Other fatigue; M19.019 Primary osteoarthritis, unspecified shoulder; R31.29 Other microscopic hematuria; D72.10 Eosinophilia, unspecified; D50.9 Iron deficiency anemia, unspecified; M71.111 Other infective bursitis, right shoulder; M10.9 Gout, unspecified; Z66 Do not resuscitate; Z88.0 Allergy status to penicillin; Z82.49 Family history of ischemic heart disease and other diseases of the circulatory system; Z79.2 Long term (current) use of antibiotics
CPT/HCPCS: 70450; 70551; 71045; 76775; 80053; 81003; 81015; 81099; 82570; 83516; 83521; 84155; 84156; 84165; 84300; 85025; 86038; 86160; 86335; 87070; 93005; 97116; 97163; 97167; 99285

== ENCOUNTER → 2023-09-27 09:59 | Outpatient (REF) | payer OTHER, SELFPAY | LOC: WOUND 09:59 | PROVIDERS: ATTENDING PHYSICIAN Surgery; FAMILY PHYSICIAN Family Medicine | DX: L89.153 Pressure ulcer of sacral region, stage 3 (principal); L89.614 Pressure ulcer of right heel, stage 4; L89.313 Pressure ulcer of right buttock, stage 3; L97.212 Non-pressure chronic ulcer of right calf with fat layer exposed | CPT/HCPCS: 11043 ==

== ENCOUNTER → 2023-10-25 09:17 | Outpatient (REF) | payer OTHER, SELFPAY | LOC: WOUND 09:17 | PROVIDERS: ATTENDING PHYSICIAN Surgery; FAMILY PHYSICIAN Family Medicine | DX: L89.153 Pressure ulcer of sacral region, stage 3 (principal); L89.614 Pressure ulcer of right heel, stage 4; L89.313 Pressure ulcer of right buttock, stage 3; L97.212 Non-pressure chronic ulcer of right calf with fat layer exposed | CPT/HCPCS: 11044 ==

== ENCOUNTER → 2023-11-25 10:10 | Outpatient (REF) | payer OTHER, SELFPAY | LOC: WOUND 10:10 | PROVIDERS: ATTENDING PHYSICIAN Surgery; FAMILY PHYSICIAN Family Medicine | DX: L89.153 Pressure ulcer of sacral region, stage 3 (principal); L89.614 Pressure ulcer of right heel, stage 4; L89.313 Pressure ulcer of right buttock, stage 3; L97.212 Non-pressure chronic ulcer of right calf with fat layer exposed | CPT/HCPCS: 11042 ==

== ENCOUNTER 2023-12-19 15:29 | Emergency (ER) | payer OTHER, SELFPAY ==
[2023-12-19 15:51] VITALS: BP 105/75
[2023-12-19 16:41] LABS: ALT (SGPT) 15 U/L (0-50); AST (SGOT) 31 U/L (17-59); Albumin 5.1 g/dl (3.5-5.0); Alkaline Phosphatase 105 U/L (38-126); Blood Urea Nitrogen 48 mg/dl (9-20); Calcium 10.8 mg/dl (8.4-10.2); Carbon Dioxide 16 mmol/L (22-30); Chloride 106 mmol/L (98-107); Glucose 145 mg/dl (70-99); Potassium 4.7 mmol/L (3.5-5.1); Sodium 139 mmol/L (135-145); Total Bilirubin 0.9 mg/dl (0.2-1.3); Total Protein 8.4 g/dl (6.3-8.2); eGFR 39.51
[2023-12-19 17:55] LABS: % Basophils 0.2 % (0-2); % Immature Granulocytes 0.6 % (0-0.5); % Lymphocytes 9.1 % (20.5-51.1); % Monocytes 8.5 % (1.7-9.3); % Neutrophils 81.6 % (42.2-75.2); Absolute Immature Granulocytes 0.1 10^3/uL (0-0.05); Absolute Lymphocytes 1.1 10^3/uL (1.2-3.4); Absolute Neutrophils 9.8 10^3/uL (1.4-6.5); Hematocrit 38.3 % (39.0-52.0); Mean Corp Hgb Conc. 33.9 g/dL (33.0-37.0); Mean Corpuscular Hgb 32.9 pg (27.0-31.0); Mean Platelet Volume 9.8 fL (7.4-10.4); Nucleated Red Blood Cells % 0 % (-); Platelet Count 230 10^3/uL (130-400); Red Blood Cell Count 3.95 10^6/uL (4.70-6.10); Red Cell Dist. Width 14.3 % (11.5-14.5)
[2023-12-19 18:00] VITALS: BP 107/60
[2023-12-19] MEDS: ZOFRAN 4 MG IV (18:02)
[2023-12-19] MEDS: NSS 500 IV (18:02)
[2023-12-19 18:08] LABS: Lactic Acid 1.4 mmol/L (0.7-2.0)
[2023-12-19 19:00] VITALS: BP 110/70
[2023-12-19 20:00] VITALS: BP 104/58
--- NOTE | 2023-12-19 20:21 | ED.GENMED ---
History of Present Illness
General
Chief Complaint: Fever
Source: patient and spouse
Time Seen by Provider: 12/19/23 17:20
Travel History
Have you had any contact with someone who has COVID-19?: No
Do you have any symptoms of coronavirus? Fever > 100 degrees, chills, cough, shortness of breath, sore throat, loss of taste or smell, muscle aches, or headache?: No
History of Present Illness
History of Present Illness:
83-year-old male presents to the emergency room for evaluation of diarrhea. Patient has had a history of chronic diarrhea and has been prescribed Lomotil. Recently the pattern has been that he has diarrhea for a day perhaps 2 and with medication
the symptoms go away. He typically does not have associated nausea or vomiting. Over the past couple days he has developed diarrhea which she describes as green. No blood or mucus. He had about 4-5 episodes of loose stool in the past 24 hours.
He did have associated nausea vomiting which was unusual. He denies any significant abdominal pain though he does have some cramping prior to having a bowel movement. No fever. Patient has had hospitalizations recently for infections. He had an
infected bursitis which caused 'sepsis' in his shoulder. He is also been treated for osteomyelitis of the foot and ankle. Patient had a PICC line and was receiving IV antibiotics until mid September. He has not been on antibiotics since that time.
Past History
Past History
ED Past Medical History: GERD, HTN and Other (GI bleed on Protonix)
Social History
Tobacco: Non-smoker
Alcohol: Daily
Personal:
Phy Exam
Physical Exam
Physical Exam:
General: Awake, Alert, Oriented X3. No acute distress, appears stated age and somewhat chronically ill
Vitals: Afebrile
Head: Atraumatic
Eyes: Pupils equal, EOMI
Throat: Airway intact, no exudates
Neck: Trachea midline
Lungs: Clear and equal b/l
Heart: Regular rate, no murmurs
Abd: Soft, Nontender, No pulsatile mass
Neuro: Nonfocal
Skin: Warm, dry, no rash
Extremities: pulses equal b/l, no edema
Course
Orders/Labs/Results
Orders:
Orders
12/19/23 15:56
Electrocardiogram (*1) Urgent
Reason for Study: Other
Other Reason for Exam: Possible Sepsis
12/19/23 15:57
EKG- Treatment ONCE
12/19/23 16:11
Blood Culture Q30M
LORIE Source: Blood/Venous
Specimen Description:
Comment: FROM 2 SEPARATE SITES
12/19/23 16:12
Comprehensive Metabolic Panel Urgent
12/19/23 17:32
0.9% Sodium Chloride 500 ml [Nss] 500 ml IV BOLUS
Ondansetron Injectable [Zofran] 4 mg IV NOW STA
12/19/23 17:47
Complete Blood Count/With Diff Urgent
Lactic Acid Q4H
Comment: ON ICE, CANCEL 2ND ORDER IF FIRST LACTIC ACID LEVEL <2
Blood Culture Q30M
LORIE Source: Blood/Venous
Specimen Description:
Comment: FROM 2 SEPARATE SITES
12/19/23 20:00
Lactic Acid Q4H
Comment: ON ICE, CANCEL 2ND ORDER IF FIRST LACTIC ACID LEVEL <2
Abnormal Lab Results
12/19/23 12/19/23
16:12 17:47
WBC 12.0 H 10^3/uL
(4.8-10.8)
RBC 3.95 L 10^6/uL
(4.70-6.10)
Hct 38.3 L %
(39.0-52.0)
MCV 97.0 H fL
(80.0-94.0)
MCH 32.9 H pg
(27.0-31.0)
Abs Immat Gran (auto) 0.1 H 10^3/uL
(0-0.05)
Absolute Neuts (auto) 9.8 H 10^3/uL
(1.4-6.5)
Absolute Lymphs (auto) 1.1 L 10^3/uL
(1.2-3.4)
Absolute Monos (auto) 1.0 H 10^3/uL
(0.1-0.6)
Immature Gran % 0.6 H %
(0-0.5)
Neutrophils % 81.6 H %
(42.2-75.2)
Lymphocytes % 9.1 L %
(20.5-51.1)
Carbon Dioxide 16 L mmol/L
(22-30)
BUN 48 H mg/dl
(9-20)
Creatinine 1.7 H mg/dL
(0.7-1.3)
Glucose 145 H mg/dl
(70-99)
Calcium 10.8 H mg/dl
(8.4-10.2)
Total Protein 8.4 H g/dl
(6.3-8.2)
Albumin 5.1 H g/dl
(3.5-5.0)
12/19/23 17:47
12/19/23 16:12
Vital Signs
Initial and Last Documented VS:
Initial Vital Signs
Temp Pulse Resp BP Pulse Ox
99.4 F 109 18 105/75 98
12/19/23 15:51 12/19/23 15:51 12/19/23 15:51 12/19/23 15:51 12/19/23 15:51
Last Documented Vital Signs
Temp Pulse Resp BP Pulse Ox
99.4 F 101 14 104/58 96
12/19/23 15:51 12/19/23 20:15 12/19/23 20:15 12/19/23 20:00 12/19/23 20:15
MDM/Problems Addressed
Differential Diagnosis Includes:
C. difficile, viral enteritis, secretory diarrhea
MDM/Problems Addressed:
Patient presents for evaluation of increased amount of diarrhea. His labs here are reassuring. He does not have a fever. He did not develop a fever here in the emergency room. His abdominal exam is benign. He received IV fluid and antiemetics
which helped him feel better. He was in the emergency room for 4 hours and did not produce any stool to send for testing. Overall I do not see any evidence of instability that would benefit from a hospitalization. I think it is reasonable at the
patient for home, follow-up with GI as an outpatient as well as his primary care provider. Return if he feels he is getting worse.
*Pulse Oximetry
Patient hypoxic: no
*EKG
Interpreted by ED Provider?: Yes
Interpretation: abnormal
Heart Rate: 109
Rate: tachycardiac
Rhythm: sinus and sinus tachycardia
Interval: normal interval
QRS Pattern: normal QRS
Ischemia: no ischemia
*Sheet Rock Installer Interpretation
Rate: tachycardiac
Interpretation: abnormal
Heart Rate: 109
Rhythm: sinus and sinus tachycardia
*Critical Care Note
Total Time (30-74mins, 75-104mins- exclusive of procedures): Not Applicable
Data Reviewed
Review of Other/Old Records Reveals: Radiology Studies and Discharge Summary
Patient Management
Social determinants of health affecting care: Strong social support
ED Attending Note
-
Portions of this chart may have been created with voice recognition software.� Occasional wrong word or��sound alike� substitutions may have occurred due to the inherent limitations of voice recognition software.
Discharge Plan
Departure
Patient Disposition: Home (Routine Discharge)
Date of Disposition: 12/19/23
Time of Disposition: 20:21
Patient with high blood pressure during this ER visit?: No
Condition: Good
Discharge Problem:
Diarrhea
Instructions: Dehydration, Adult (DC)
Prescriptions:
New
ondansetron 4 mg tablet,disintegrating
4 mg PO TID PRN (Reason: nausea and vomiting) Qty: 20 0RF
No Action
acetaminophen [Tylenol Extra Strength] 500 mg Tablet
1,000 mg PO BID
pantoprazole 40 mg Tablet,Delayed Release (Dr/Ec)
40 mg PO DAILY
gabapentin 100 mg Capsule
100 mg PO BID
metoprolol tartrate 25 mg Tablet
12.5 mg PO BID
lisinopril-hydrochlorothiazide 20-12.5 mg Tablet
1 tab PO DAILY
Anti-Diarrhea Pill
1 cap PO Q8HPRN PRN (Reason: diarrhea)
Referrals:
Oscar Veronica, DO [Family Provider] -
Interventions
Interventions:
*Risk Screen - Suicide Last Done: 12/19/23 15:56
*General Assessment Last Done: 12/19/23 15:56
*Neglect/Abuse Screening Last Done: 12/19/23 15:56
ED- Fall Risk Assessment Last Done: 12/19/23 21:00
*Nursing Disposition Last Done: 12/19/23 21:00
HW-Sglgmo-Ffjfcmsunh Assessment Last Done: 12/19/23 18:59
ED- Neurological Assessment Last Done: 12/19/23 18:59
ED-Skin Assessment Last Done: 12/19/23 18:59
Discharge Date and Time
Discharge Date/Time: 12/19/23 21:01
Print Language: CYMRAES
== END 2023-12-19 21:01 | disposition home or self-care (01) ==
LOC: EMR 15:29
PROVIDERS: Emergency Medicine; EMERGENCY PHYSICIAN Emergency Medicine; FAMILY PHYSICIAN Family Medicine
DX: R19.7 Diarrhea, unspecified (principal); R11.2 Nausea with vomiting, unspecified; R10.9 Unspecified abdominal pain; I10 Essential (primary) hypertension; K21.9 Gastro-esophageal reflux disease without esophagitis; Z79.899 Other long term (current) drug therapy; Z88.1 Allergy status to other antibiotic agents; Z88.0 Allergy status to penicillin
CPT/HCPCS: 99284; 96374; 96361; 80053; 83605; 85025; 87040; 93005

== ENCOUNTER → 2024-01-06 09:48 | Outpatient (REF) | payer OTHER, SELFPAY | LOC: WOUND 09:48 | PROVIDERS: ATTENDING PHYSICIAN Surgery; FAMILY PHYSICIAN Family Medicine | DX: L89.153 Pressure ulcer of sacral region, stage 3 (principal); L89.614 Pressure ulcer of right heel, stage 4; L89.313 Pressure ulcer of right buttock, stage 3; L97.212 Non-pressure chronic ulcer of right calf with fat layer exposed | CPT/HCPCS: 11042 ==

== ENCOUNTER 2024-04-12 12:58 | Inpatient (IN) | payer OTHER, SELFPAY ==
[2024-04-12 09:00] VITALS: BP 152/88
--- NOTE | 2024-04-12 09:54 | ED.GENMED ---
History of Present Illness
General
Chief Complaint: Skin Problem
Source: patient, spouse and family
Exam Limitations: none
Time Seen by Provider: 04/12/24 09:20
Nursing documentation reviewed up to this point in time: agreed with
History of Present Illness
History of Present Illness:
Patient is an 83-year-old male with a history of right heel osteomyelitis with chronic wound that over the past month is getting progressively worse and now is draining a green discharge. Last time this happened he ended up having Pseudomonas
requiring PICC placement and intravenous antibiotics for 6 to 8 weeks. Patient's noticed that was getting more red and the skin breaking down around the area. Patient's had sepsis in his right shoulder as well as his right Talotibial joint.
Patient denies fever or chills. Patient denies decreased appetite. Patient denies any GI or symptoms. Patient denies any nasal congestion, sore throat or cough. Patient does see a clinical care leader for this regularly. Patient is to have an MRI of
his right ankle for suspected osteomyelitis on April 29.
Past History
Past History
ED Past Medical History: GERD, HTN and Other (GI bleed on Protonix, osteomyelitis, sepsis, MATY, gout)
Social History
Tobacco: Non-smoker
Alcohol: Daily
Personal:
Review of Systems
Review of Systems
All Other Systems: ROS reviewed and negative except as documented in HPI and ROS
Constitutional: Reports no symptoms
EENT: Reports no symptoms
Respiratory: Reports no symptoms
Cardiac: Reports no symptoms
ABD/GI: Reports no symptoms
: Reports no symptoms
Musculoskeletal: Reports joint swelling
Skin: Reports other (right heel skin breakdown and erythema and drainage green)
Neurological: Reports no symptoms
Hematologic/Lymphatic: Reports no symptoms
Psychiatric: Reports no symptoms
Phy Exam
Physical Exam
Physical Exam:
Physical Exam
General: No apparent distress, alert and appropriate, well nourished, well hydrated
HENT: Normocephalic, supple with no lymphadenopathy, no thyromegaly
Eyes: Clear sclera, conjuctiva without injection
Heart: Regular rhythm and rate. No S3, S4. No murmur.
Lungs: No respiratory distress, no stridor, lung sounds clear and equal bilaterally
Abdomen: Soft, nontender, BS good
Neuro: Alert and oriented x 3, CN II - XII intact, no motor focality, no cerebellar dysfunction
Skin: Right heel on the plantar surface has an open wound with mild green drainage with surrounding erythema extending to the lateral aspect of the foot.
Psychiatric: well kept. interactive and cooperative
Extremities: No cyanosis, tenderness, Good and equal peripheral pulses.
Course
Orders/Labs/Results
Orders:
Orders
04/12/24 09:49
IV Insert/Care/Rem.- Treatment PRN
Heel, Right 2 View [CR Heel/os Calcis - Right 2 Vw] Urgent
Comment:
Reason For Exam: erythema drainage
04/12/24 10:10
Complete Blood Count/With Diff Urgent
Comprehensive Metabolic Panel Urgent
Procalcitonin Urgent
PCT Algorithmm Indication: Sepsis
Sed Rate [Erythrocyte Sed Rate] Urgent
Blood Culture Routine
LORIE Source: Blood/Venous
Specimen Description:
Blood Culture Urgent
LORIE Source: Blood/Venous
Specimen Description:
Wound Culture [Wound/Abscess/Other Culture] Routine
LORIE Source: Heel
Specimen Description: Right
Date Specimen was Collected: 04/12/24
Time Specimen was Collected: 10:00
Abnormal Lab Results
04/12/24
10:10
RBC 3.73 L 10^6/uL
(4.70-6.10)
Hgb 12.1 L g/dL
(13.0-18.0)
Hct 36.6 L %
(39.0-52.0)
MCV 98.1 H fL
(80.0-94.0)
MCH 32.4 H pg
(27.0-31.0)
Absolute Monos (auto) 1.3 H 10^3/uL
(0.1-0.6)
Lymphocytes % 18.1 L %
(20.5-51.1)
Monocytes % 14.4 H %
(1.7-9.3)
ESR 23 H mm/hour
(0-20)
Sodium 146 H mmol/L
(135-145)
BUN 29 H mg/dl
(9-20)
Calcium 10.4 H mg/dl
(8.4-10.2)
04/12/24 10:10
04/12/24 10:10
Vital Signs
Initial and Last Documented VS:
Initial Vital Signs
Temp Pulse Resp BP Pulse Ox
98.4 F 95 16 152/88 98
04/12/24 09:00 04/12/24 09:00 04/12/24 09:00 04/12/24 09:00 04/12/24 09:00
Last Documented Vital Signs
Temp Pulse Resp BP Pulse Ox
98.5 F 78 14 141/86 99
04/12/24 11:32 04/12/24 11:32 04/12/24 11:32 04/12/24 11:32 04/12/24 11:32
*Radiology
Radiology exam reviewed: radiology read reviewed (There is a new lucency which could be consistent with osteomyelitis.)
*Pulse Oximetry
Patient hypoxic: no
*EKG
Interpreted by ED Provider?: NA
*Certified Nursing Attendant Interpretation
Rate: Certified Nursing Attendant- N/A
*Critical Care Note
Total Time (30-74mins, 75-104mins- exclusive of procedures): Not Applicable
ED Attending Note
-
Portions of this chart may have been created with voice recognition software.� Occasional wrong word or��sound alike� substitutions may have occurred due to the inherent limitations of voice recognition software.
Discharge Plan
Departure
Patient Disposition: Admit
Date of Disposition: 04/12/24
Time of Disposition: 12:01
Admit to: Med/Surg
Admit to doctor: Hospitalist
Presentation/result/management discussed w/ accepting MD/DO: Hospitalist
Patient with high blood pressure during this ER visit?: Yes
Condition: Fair
Covid-19: Not Applicable
Discharge Problem:
Osteomyelitis of ankle or foot, right, acute
Prescriptions:
No Action
acetaminophen [Tylenol Extra Strength] 500 mg Tablet
1,000 mg PO BID
pantoprazole 40 mg Tablet,Delayed Release (Dr/Ec)
40 mg PO DAILY
gabapentin 100 mg Capsule
100 mg PO BID
metoprolol tartrate 25 mg Tablet
12.5 mg PO BID
lisinopril-hydrochlorothiazide 20-12.5 mg Tablet
1 tab PO DAILY
Anti-Diarrhea Pill
1 cap PO Q8HPRN PRN (Reason: diarrhea)
ondansetron 4 mg tablet,disintegrating
4 mg PO TID PRN (Reason: nausea and vomiting) Qty: 20 0RF
Referrals:
Oscar Veronica DO [Family Provider] -
Interventions
Interventions:
*Risk Screen - Suicide Last Done: 04/12/24 09:00
*General Assessment Last Done: 04/12/24 09:00
*Neglect/Abuse Screening Last Done: 04/12/24 09:00
ED-Skin Assessment Last Done: 04/12/24 10:15
Discharge Date and Time
Print Language: YAKUT
[2024-04-12 10:22] LABS: % Basophils 0.5 % (0-2); % Eosinophils 4.7 % (0-6); % Immature Granulocytes 0.3 % (0-0.5); % Lymphocytes 18.1 % (20.5-51.1); % Monocytes 14.4 % (1.7-9.3); Absolute Basophils 0.1 10^3/uL (0-0.2); Absolute Eosinophils 0.4 10^3/uL (0-0.7); Absolute Lymphocytes 1.7 10^3/uL (1.2-3.4); Absolute Monocytes 1.3 10^3/uL (0.1-0.6); Absolute Neutrophils 5.6 10^3/uL (1.4-6.5); Hematocrit 36.6 % (39.0-52.0); Hemoglobin 12.1 g/dL (13.0-18.0); Mean Corp Hgb Conc. 33.1 g/dL (33.0-37.0); Mean Corpuscular Hgb 32.4 pg (27.0-31.0); Mean Corpuscular Volume 98.1 fL (80.0-94.0); Mean Platelet Volume 9.8 fL (7.4-10.4); Nucleated Red Blood Cells % 0 % (-); Platelet Count 288 10^3/uL (130-400); Red Blood Cell Count 3.73 10^6/uL (4.70-6.10); Red Cell Dist. Width 14.2 % (11.5-14.5); White Blood Cell Count 9.1 10^3/uL (4.8-10.8)
[2024-04-12 10:35] LABS: ALT (SGPT) 14 U/L (0-50); AST (SGOT) 27 U/L (17-59); Albumin 4.5 g/dl (3.5-5.0); Alkaline Phosphatase 94 U/L (38-126); Blood Urea Nitrogen 29 mg/dl (9-20); Calcium 10.4 mg/dl (8.4-10.2); Carbon Dioxide 25 mmol/L (22-30); Chloride 106 mmol/L (98-107); Glucose 91 mg/dl (70-99); Potassium 4.9 mmol/L (3.5-5.1); Sodium 146 mmol/L (135-145); Total Bilirubin 0.5 mg/dl (0.2-1.3); Total Protein 7.3 g/dl (6.3-8.2); eGFR > 60.00
[2024-04-12 10:50] LABS: Procalcitonin < 0.05 ng/ml (0.0-0.25)
[2024-04-12 11:00] LABS: Erythrocyte Sed Rate 23 mm/hour (0-20)
[2024-04-12 11:32] VITALS: BP 141/86
--- NOTE | 2024-04-12 12:20 | HPS.HSE ---
Family Physician
-
Family Physician: Oscar Veronica
Chief Complaint
-
Drainage for chr Rt heel wound
History of Present Illness
83M HX Chr OM Right Calcaneus with chr heel wound and Septic Joint of the tibiotalar joint, HX of AIN presumed to Cefepime on last admission thus , treated with Meropenem, Chronic anemia, GERD, Gout, HX GIB seen at ER for progressively worse
and now is draining a green discharge from Rt chr heel wound with underlying chr calcaneum OM. Upon last admission POS Pseudomonas requiring PICC placement and intravenous Cefepime complicated by AIN/MATY then switch to Meropenem for 6 to 8 weeks.
- f/u verification rep for this regularly
- schedule for MRI of his right ankle for suspected osteomyelitis on April 29.
ROS:
denies fever or chills. Patient denies decreased appetite.
denies any GI or symptoms.
Medical History
Past Medical History
Past Medical History: Reports Other ( hypertension, pancreatic cyst, iron deficiency anemia, GERD, right heel decubitus ulcer, right buttocks, right calf ulcers, prior history of C. difficile)
Additional Past Medical History:
septic bursitis of the right shoulder June 2023
Past Surgical History: Reports Other (PICC line right upper arm)
Social History
Tobacco: Non-smoker
Alcohol: Occasional
Drug: None
Personal:
Living: With Family
Employment: Retired
Family History
Family History: Other (Mother cancer age 81 tumor on femur, father [place] age 64)
Allergies / Home Medications
Allergies reflects when Allergies were last updated in [facility].
Home Medications with original date entered in [facility]
Allergy/Medication List:
Allergies
Allergy/AdvReac Type Severity Reaction Status Date / Time
Penicillins Allergy Rash- Verified 07/02/23 12:35
tolerated
cefazolin
in 2016
Home Medications
lisinopril 20 mg-hydrochlorothiazide 12.5 mg tablet 1 tab PO DAILY Blood Pressure 06/22/22
gabapentin 100 mg capsule 300 mg PO HS Pain 04/03/23
oxycodone 5 mg tablet 5 mg PO Q8H PRN Mod sev pain #14 tabs 07/08/23
acetaminophen 325 mg tablet 650 mg PO QIDPRN PRN pain 09/16/23
cefepime 2 gram solution for injection 2 g IV Q12 Infection 09/16/23
colchicine 0.6 mg capsule 0.6 mg PO QPM Gout 09/16/23
metoprolol succinate 25 mg tablet,extended release 24 hr (Toprol XL) 12.5 mg PO BID Blood Pressure 09/16/23
pantoprazole 40 mg tablet,delayed release 40 mg PO DAILY Gastrointestinal Issue 09/16/23
sodium hypochlorite 0.125 % solution (Dakin's Solution) 1 applic topical BID right buttock & posterior leg/heel 09/16/23
vancomycin 50 mg/mL oral solution (Firvanq) 125 mg PO DAILY cdiff prophylaxis 09/16/23
Review of Systems
-
History Source: Patient
A 12 point ROS was completed and negative except as noted: Yes
Constitutional: Reports Fatigue; Denies Fever or Chills
EENT: Denies Sore Throat or Runny Nose
Respiratory: Denies Cough or Trouble Breathing
Cardiac: Denies Chest Pain, Diaphoresis, Palpitations or Syncope
Abdomen/GI: Denies Abdominal Pain, Nausea, Vomiting, Diarrhea, Bloody Stools or Black Stools
: Denies Dysuria, Frequency, Flank Pain, Incontinence, Difficulty Voiding or Urgency
Musculoskeletal: Denies Joint Pain or Edema
Skin: Reports Other (Chronic ulcers to right heel, stage I sacral decub); Denies Itching or Rash
Neurological: Reports Weakness; Denies Dizzy or Headache
Endocrine: Reports No Symptoms
Hematologic/Lymphatic: Reports No Symptoms
Psych: Reports Calm
Physical Exam
Vital Signs
Vital Signs
Temp Pulse Resp BP Pulse Ox
98.5 F 78 14 141/86 99
04/12/24 11:32 04/12/24 11:32 04/12/24 11:32 04/12/24 11:32 04/12/24 11:32
Physical Exam
General: Comfortable and Conversant; No Pain, Fever or Chills
HEENT: NormoCephalic and Anicteric
Respiratory: Clear
Cardiac: S1/S2 and Regular Rhythm; No Murmur or Rub
GI: Soft, Non Tender, Non Distended and Normal Bowel Sounds; No Organomegaly
Rectal: Deferred by Provider
Genito-urinary: Deferred by me
Musculoskeletal: No Clubbing, No Cyanosis, No Edema and Other (Chronic ulcers to right heel, stage I sacral decub)
Skin: Other (Right heel on the plantar surface has an open wound with mild green drainage with surrounding erythema extending to the lateral aspect of the foot.); No Rash
Neuro: AO x 3, Nonfocal/grossly intact, No Sensory Deficits and Other (3 out of 5 weakness to lower legs when lifting in bed, speech patient stumbles on words when spoken); No Facial Droop
Psych: Calm
Laboratory Results
-
04/12/24 10:10
04/12/24 10:10
Laboratory Results
Total Bilirubin 0.5 mg/dl (0.2-1.3) 04/12/24 10:10
AST 27 U/L (17-59) 04/12/24 10:10
ALT 14 U/L (0-50) 04/12/24 10:10
Alkaline Phosphatase 94 U/L (38-126) 04/12/24 10:10
Data Reviewed
-
Diagnostic Radiology: Report Reviewed by me
Lab Data: Labs Reviewed by me
Old Records: Reviewed
Impression/Plan
-
Vital Signs
Temp Pulse Resp BP Pulse Ox
98.5 F 78 14 141/86 99
04/12/24 11:32 04/12/24 11:32 04/12/24 11:32 04/12/24 11:32 04/12/24 11:32
Data
12/19/23 04/12/24
17:47 10:10
WBC 12.0 H 9.1
Hgb 12.1 L
Sodium 146 H
Creatinine 1.2
eGFR > 60.00
Procalcitonin < 0.05
CR Heel/os Calcis - Right 2 Vw
Tiny radiolucent lesion in the posterior calcaneus possibly a focus of osteomyelitis. This could be confirmed by MR examination if indicated clinically. Previously noted plain film changes suggestive of osteomyelitis have resolved.
Stable severe tibiotalar changes. Possibly septic arthritis raised by previous MR examination. See report.
Mild bony demineralization.
Tiny calcaneal spur.
Last hospitalist admission:
Date of Admission: 09/16/23 - Date of Discharge: 09/18/23
PDXs
Acute kidney injury due to acute interstitial nephritis due to cefepime
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
ASSESSMENT & PLAN
Suspect acute infective flare of chr Osteomyelitis of the Right Calcaneus : afebrile, nl WCC
HX Septic Joint of the tibiotalar joint:
HX septic bursitis R shoulder
- HX C Diff
- HX AIN/MATY presumed due to IV CFP
- currently normal RFTs
- empiric IV Meropenem.
- add Florastor
- Avoid PPI due to risk for C Diff
- add H2B
- Trend BMP daily
- MRI of Rt foot in AM
- ID and Car Oiler consult
Other problems: Pending Rx reconciliation
Chronic anemia macrocytic
HX ameya deficiency
Hgb at baseline hi 11s to low 12s
HX GI bleed
HX essential HTN
Gout: stable. Continue colchicine
DVT Px: SQH
Code: DNR confimed by at bed side
IP MS
[2024-04-12 13:45] VITALS: BP 162/92
[2024-04-12 13:46] VITALS: BMI 25.7
[2024-04-12] MEDS: MERREM 1000 MG IV (14:22)
[2024-04-12] MEDS: STERILE WATER FOR INJECTION 20 ML IV (14:22)
[2024-04-12] MEDS: NEURONTIN 100 MG PO (20:46)
[2024-04-12] MEDS: HEPARIN 5000 UNITS SC (20:48)
[2024-04-12] MEDS: LOPRESSOR 12.5 MG PO (20:48)
[2024-04-12] MEDS: FLORASTOR 250 MG PO (20:48)
[2024-04-12 23:00] VITALS: BP 114/69
[2024-04-13] MEDS: STERILE WATER FOR INJECTION 20 ML IV ×2 (02:58→14:12)
[2024-04-13] MEDS: MERREM 1000 MG IV ×2 (02:58→14:10)
[2024-04-13 05:42] LABS: Hematocrit 31.7 % (39.0-52.0); Hemoglobin 10.8 g/dL (13.0-18.0); Mean Corp Hgb Conc. 34.1 g/dL (33.0-37.0); Mean Corpuscular Hgb 32.9 pg (27.0-31.0); Mean Corpuscular Volume 96.6 fL (80.0-94.0); Mean Platelet Volume 9.7 fL (7.4-10.4); Platelet Count 249 10^3/uL (130-400); Red Blood Cell Count 3.28 10^6/uL (4.70-6.10); Red Cell Dist. Width 14.1 % (11.5-14.5); White Blood Cell Count 7.8 10^3/uL (4.8-10.8)
[2024-04-13 06:09] LABS: Blood Urea Nitrogen 26 mg/dl (9-20); Calcium 9.8 mg/dl (8.4-10.2); Carbon Dioxide 25 mmol/L (22-30); Chloride 105 mmol/L (98-107); Estimated Creatinine Clearance 48 ml/min; Glucose 108 mg/dl (70-99); Potassium 4.5 mmol/L (3.5-5.1); Sodium 139 mmol/L (135-145); eGFR > 60.00
[2024-04-13 07:21] VITALS: BP 138/85
[2024-04-13] MEDS: HEPARIN SC ×2 (08:04→19:39)
[2024-04-13] MEDS: LOPRESSOR 12.5 MG PO ×2 (08:04→19:39)
[2024-04-13] MEDS: FLORASTOR 250 MG PO ×2 (08:04→19:39)
[2024-04-13] MEDS: NEURONTIN 100 MG PO (08:05)
--- NOTE | 2024-04-13 09:20 | W.PN.HOSP.TC ---
Addendum entered and electronically signed by Kenia Aponte MD 04/13/24 13:24:
Addendum
d/w pharmacy
adjusted medications
Will keep metoprolol to better control heart rate. Echo LVEF in 2022 around 70%.
End
Original Note:
Today's Communication/Plan
-
MRI
Check CRP
c/w IV Abx
Wound care
F/w ortho & ID recommendations
Assessment / Plan
Assessment / Plan
Physical Exam
General: Comfortable and Conversant; No Pain, Fever or Chills
HEENT: Normocephalic and Anicteric
Respiratory: Clear
Cardiac: S1/S2
GI: Soft, Non Tender, Non Distended and Normal Bowel Sounds.
Rectal: no rectal bleeding
Genito-urinary: Deferred by me
Musculoskeletal: No Clubbing, No Cyanosis, No Edema and Other (Chronic ulcers to right heel, stage I sacral decub)
Skin: Other (Right heel on the plantar surface has an open wound with mild green drainage with surrounding erythema extending to the lateral aspect of the foot.); No Rash
Neuro: AO x 3, Nonfocal/grossly intact, No Sensory Deficits and Other (3 out of 5 weakness to lower legs when lifting in bed, speech patient stumbles on words when spoken); No Facial Droop
Psych: Calm
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
Right heel wound, known Pressure ulcer of right heel, stage 4
He is afebrile, nl WCC
HX Septic Joint of the tibiotalar joint:
HX septic bursitis R shoulder
- HX C Diff
- HX AIN/MATY presumed due to IV CFP
- currently normal RFTs
- empiric IV Meropenem.
- MRI of Rt foot
- ESR mildly elevated, check CRP
- ID and Private Household Worker consult
# hypernatremia
resolving
Other problems: Pending Rx reconciliation
Chronic anemia macrocytic
HX ameya deficiency
Hgb at baseline hi 11s to low 12s
HX GI bleed
HX essential HTN
Gout: stable. Continue colchicine
DVT Px: SQH
Code: DNR confirmed by at bed side
IP MS
Total time spent to see the patient, examine the patient on the floor, review data and lab results, discuss treatment plan with patient, nursing staff around 55 minutes
Anticipated Discharge: > 48 hours
Subjective/Interval History
-
Date of Service: April 13, 2024
No chest pain
No fevers
No abd pain
Objective Data
-
Labs:
Laboratory Results
04/13/24
05:24
WBC 7.8
Hgb 10.8 L
Hct 31.7 L
Plt Count 249
Sodium 139
Potassium 4.5
Chloride 105
Carbon Dioxide 25
BUN 26 H
Creatinine 1.1
Glucose 108 H
Calcium 9.8
Vital Signs:
Vital Signs
Temp Pulse Resp BP Pulse Ox
97.9 F 89 16 138/85 97
04/13/24 07:21 04/13/24 08:04 04/13/24 07:21 04/13/24 08:04 04/13/24 07:21
I&O
04/12/24 04/13/24 04/14/24
06:59 06:59 06:59
Intake Total 720 / 720 240 / 240
Balance 720 / 720 240 / 240
--- NOTE | 2024-04-13 13:20 | CON.MD ---
Consultation - Medical
-
CC/HPI:
Podiatry consulted for Chronic Rt heel wound with osteomyelitis
He is an 83 male with a history Chronic OM Right Calcaneus with chronic heel wound. He states that in the past few weeks he noted increased redness and drainage form the heel wound. 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
an active runner. He relates Septic Joints in the past. He was treated with IV Cefipime then Meropenem in the past.
Chronic anemia, GERD, Gout, Rt chronic heel wound with underlying calcaneum OM. Upon last admission POS Pseudomonas requiring PICC placement and intravenous Cefepime complicated by AIN/MATY then switch to Meropenem for 6 to 8 weeks. He follows with
podiatry regularly for management of the heel. Denies constitutional symptoms currently. Denies pain.
Past Medical History
hypertension, pancreatic cyst, iron deficiency anemia, GERD, right heel decubitus ulcer, right buttocks, right calf ulcers, prior history of C. difficile, septic bursitis of the right shoulder June 2023
Past Surgical History:
PICC line right upper arm
Social History:
Tobacco: Non-smoker
Alcohol: Occasional
Drug: None
Personal:
Living: With Family
Employment: Retired
Family History
Mother cancer age 81 tumor on femur, father [place] age 64
Allergies
Allergy/AdvReac Type Severity Reaction Status Date / Time
Penicillins Allergy Rash- Verified 07/02/23 12:35
tolerated
cefazolin
in 2016
Home Medications
lisinopril 20 mg-hydrochlorothiazide 12.5 mg tablet 1 tab PO DAILY Blood Pressure 06/22/22
gabapentin 100 mg capsule 300 mg PO HS Pain 04/03/23
oxycodone 5 mg tablet 5 mg PO Q8H PRN Mod sev pain #14 tabs 07/08/23
acetaminophen 325 mg tablet 650 mg PO QIDPRN PRN pain 09/16/23
cefepime 2 gram solution for injection 2 g IV Q12 Infection 09/16/23
colchicine 0.6 mg capsule 0.6 mg PO QPM Gout 09/16/23
metoprolol succinate 25 mg tablet,extended release 24 hr (Toprol XL) 12.5 mg PO BID Blood Pressure 09/16/23
pantoprazole 40 mg tablet,delayed release 40 mg PO DAILY Gastrointestinal Issue 09/16/23
sodium hypochlorite 0.125 % solution (Dakin's Solution) 1 applic topical BID right buttock & posterior leg/heel 09/16/23
vancomycin 50 mg/mL oral solution (Firvanq) 125 mg PO DAILY cdiff prophylaxis 09/16/23
Review of Systems:
History Source: Patient
A 12 point ROS was completed and negative except as noted:
Skin: Reports Other (Chronic ulcers to right heel, stage I sacral decub)
Physical Exam:
Right foot with Palpable pulses, CFT WNL, There is a wound present on the posterolateral heel measuring 1 cm x 2 cm x 0.2 cm, it does not appear to probe. there is surrounding erythema and xerosis of the skin. there is serous drainage only upon
removal of the bandages. The ankle is stiff and arthritic.
Assessment:
Chronic osteomyelitis flare - Right calcaneus
Plan:
His wound is evaluated at bedside. It is bandaged with adaptic/DSD. Labs Reviewed. Await MRI result and CRP. Continue IV antibiotics. ID consult for extended antibiotic evaluation.
--- NOTE | 2024-04-13 13:34 | CON.ID ---
Consultation
-
Date/Time Consultation Requested: 04/12/2024 1502
Date/Time Consultation Performed: 04/13/2024 1330
Requesting Provider: Dr. Cruz
Performing Provider: Dr. Dawson
Reason for Consultation: Right heel osteomyelitis
Chief Complaint / Past History
History of Present Illness
Jayme Espinoza is an 83-year-old man being evaluated at the request of Dr. Cruz in regards to suspected right heel osteomyelitis. History is obtained from chart review, along with patient interview.
The patient is known to the Infectious Diseases service, having been seen in August for osteomyelitis of the right calcaneus and septic arthritis of the tibiotalar joint. He ultimately was discharged, to complete a 6-week course of meropenem.
He presents back to the emergency room yesterday regarding ongoing drainage from the heel. He notes that over the past month has been getting worse. No history of fevers or chills. No significant erythema extending up the foot or leg. No pain.
Past History
Additional Past Medical History:
Hypertension
pancreatic cyst
iron deficiency anemia
GERD
right heel decubitus ulcer
right buttocks
right calf ulcers
Additional Past Surgical History:
septic bursitis s/p IR drainage x 2
Allergy History:
Penicillins Allergy (Verified 04/12/24 08:59)
Rash- tolerated cefazolin in 2016
cefepime Adverse Reaction (Intermediate, Verified 04/12/24 08:59)
AIN
Medications Reviewed: Yes
Current Antibiotics:
Meropenem
Social History
Tobacco: Non-Smoker
Alcohol: Occasional
Drug: None
Personal:
Living: With Family
Employment: Retired
Family History
Family History: Not Pertinent
Review of Systems
Vital Signs
Temp Pulse Resp BP Pulse Ox
97.9 F 89 16 138/85 97
04/13/24 07:21 04/13/24 08:04 04/13/24 07:21 04/13/24 08:04 04/13/24 07:21
Physical Exam
Physical Exam
Constitutional: No Acute Distress, Comfortable and Non-toxic
Head: Normocephalic
Eyes: Pupils Equal, Pupils Round, No Conjunctival Hemorrhage and Sclera Anicteric
Oral: No Thrush and No Ulcers
Cardiovascular: Regular Rate and S1/S2; Negative S3/S4
Pulmonary: Clear; Negative Wheezes, Rales or Rhonchi
Gastrointestinal: Soft, Non Tender, Non Distended and Normal Bowel Sounds
Extremities: Negative Edema, Cyanosis or Erythema
Skin: Warm and Dry; Negative Rash or Jaundice
Wound: Other (right heel wound with granular bed. No purulence or significant drainage. Little periwound erythema. No malodor. No exposed bone.)
Neurological: Awake and Alert
Psychological: Calm
Lab / Diagnostic Study Results
04/13/24 05:24
04/13/24 05:24
Abs Immat Gran (auto) 0.0 10^3/uL (0-0.05) 04/12/24 10:10
Absolute Neuts (auto) 5.6 10^3/uL (1.4-6.5) 04/12/24 10:10
Absolute Lymphs (auto) 1.7 10^3/uL (1.2-3.4) 04/12/24 10:10
Absolute Monos (auto) 1.3 10^3/uL (0.1-0.6) H 04/12/24 10:10
Absolute Basos (auto) 0.1 10^3/uL (0-0.2) 04/12/24 10:10
Immature Gran % 0.3 % (0-0.5) 04/12/24 10:10
Neutrophils % 62.0 % (42.2-75.2) 04/12/24 10:10
Lymphocytes % 18.1 % (20.5-51.1) L 04/12/24 10:10
Monocytes % 14.4 % (1.7-9.3) H 04/12/24 10:10
Eosinophils % 4.7 % (0-6) 04/12/24 10:10
Basophils % 0.5 % (0-2) 04/12/24 10:10
ESR 23 mm/hour (0-20) H 04/12/24 10:10
Procalcitonin < 0.05 ng/ml (0.0-0.25) 04/12/24 10:10
Microbiology Results
Micro:
04/12/24 10:10 Blood Culture - Preliminary
Blood/Venous No Growth in 24 hours- Final report to follow
04/12/24 10:10 Blood Culture - Preliminary
Blood/Venous No Growth in 24 hours- Final report to follow
04/12/24 10:10 Wound Culture - Preliminary
Heel - Right Gram Stain - Preliminary
Imaging:
04/13/2024 MRI right lower extremity: 1. MILD ACUTE OSTEOMYELITIS in the POSTEROLATERAL CALCANEUS deep to an overlying wound (much less severe acute osteomyelitis than on the prior exam performed 08/26/2023). 2. SEVERE ACUTE on CHRONIC SEPTIC
ARTHRITIS of the RIGHT TIBIOTALAR JOINT with interval increase in osseous destruction in the distal tibia and proximal talus with acute osteomyelitis surrounding the joint. 3.3 cm rim-enhancing enhancing fluid collection protruding anteriorly from
the tibiotalar joint consistent with a septic joint effusion or abscess. 3. SEPTIC TENOSYNOVITIS around the FLEXOR HALLUCIS LONGUS TENDON in the posterior ankle which has increased since 08/26/2023. 4. Multiple large ossific fragments lateral
to the talus at the site of a chronic anterior talofibular ligament tear. 5. Severe hypoxic degeneration of the Achilles tendon.
6. Severe tendinosis of the posterior tibial tendon. 7. Severe acute on chronic denervation throughout the muscles of the right lower leg and foot.
04/12/2024 x-ray right heel: Tiny radiolucent lesion in the posterior calcaneus possibly a focus of osteomyelitis. This could be confirmed by MR examination if indicated clinically. Previously noted plain film changes suggestive of osteomyelitis
have resolved.
Assessment / Plan
Chronic right heel wound
Hx Right heel osteomyelitis
- received 6 weeks IV meropenam (08/29/23 - 10/10/23)
Hypertension
pancreatic cyst
iron deficiency anemia
GERD
right heel decubitus ulcer
Recommendations:
Right heel ulcer relatively stable, and without significant clinical evidence of infection despite read of MRI. Suspect at least some of the MRI findings are related to prior osteomyelitis.
Would continue with local wound care to the area.
A superficial wound culture has been performed, although I doubt that it will provide any additional information, and will indicate only superficial colonization. Blood cultures additionally have been ordered, do not suspect that they will be
positive.
Would favor D/C further abx. for now. If there is significant concern for osteo, would perform bone biopsy / bone culture while off abx for at least several days, after which abx therapy can be directed at recovered organisms.
[2024-04-13] MEDS: ZESTRIL 20 MG PO (14:12)
--- NOTE | 2024-04-13 15:10 | CM ---
Patient seen at bedside. Patient stated that he lives at home with his , son, daughter in law and grandkids. He has recently been to [facility] and [facility] [place]. Patient stated that his son remodeled the first floor of the home for him and
his . Patient relayed that his home is one story. One step to enter. He stated that his usually assists with dressing and supervises bathing. He ambulates with a cane but has a walker for longer distances. Family supports patient and
with all adl's that are needed. Patient has had [facility] home care and [facility] for IV antibiotics. Patient is very clear that he wants to return home and is open to having [facility] if IV antibiotics are needed. CM will continue to
follow for discharge planning needs.
Plan; home with VN vs home with no needs.
[2024-04-13 15:40] VITALS: BP 120/85
[2024-04-13] MEDS: TYLENOL 1000 MG PO (18:29)
[2024-04-13 23:47] VITALS: BP 119/59
[2024-04-14 07:30] VITALS: BP 138/84
[2024-04-14] MEDS: ZESTRIL 20 MG PO (08:43)
[2024-04-14] MEDS: ORETIC 12.5 MG PO (08:43)
[2024-04-14] MEDS: HEPARIN SC (08:43)
[2024-04-14] MEDS: LOPRESSOR 12.5 MG PO (08:43)
[2024-04-14] MEDS: NEURONTIN 100 MG PO (08:43)
[2024-04-14] MEDS: FLORASTOR 250 MG PO (08:43)
[2024-04-14] MEDS: PROTONIX 40 MG PO (08:43)
--- NOTE | 2024-04-14 10:15 | W.PN.HOSP.TC ---
Addendum entered and electronically signed by Kenia Aponte MD 04/14/24 15:00:
Addendum
Discussed with ID doctor. No evidence of clinical infection.
Podiatry note was reviewed. No intervention needed, weightbearing as tolerated.
Patient was anxious to go home,
Total discharge time spent to see the patient, examine the patient on the floor, review data and lab results, discuss discharge plan with patient, nursing staff around 65 minutes
Original Note:
Today's Communication/Plan
-
MRI is resulted.
Further planning of treatment & discharge planning pending podiatry input
ID note is reviewed, input appreciated
Assessment / Plan
Assessment / Plan
Physical Exam
General: Comfortable and Conversant; No Pain, Fever or Chills
HEENT: Normocephalic and Anicteric
Respiratory: Clear
Cardiac: S1/S2
GI: Soft, Non Tender, Non Distended and Normal Bowel Sounds.
Rectal: no rectal bleeding
Genito-urinary: Deferred by me
Musculoskeletal: No Clubbing, No Cyanosis, No Edema and Other (Chronic ulcers to right heel, stage I sacral decub)
Skin: Other (Right heel on the plantar surface has an open wound with mild green drainage with surrounding erythema extending to the lateral aspect of the foot.); No Rash
Neuro: AO x 3, Nonfocal/grossly intact, No Sensory Deficits and Other (3 out of 5 weakness to lower legs when lifting in bed, speech patient stumbles on words when spoken); No Facial Droop
Psych: Calm
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
Right heel wound, known Pressure ulcer of right heel, stage 4
He is afebrile, nl WCC
HX Septic Joint of the tibiotalar joint:
HX septic bursitis R shoulder
- HX C Diff
- HX AIN/MATY presumed due to IV CFP
- currently normal RFTs
- empiric IV Meropenem was given but stopped.
- MRI of Rt foot noted, showing osteomyelitis in calcaneus (much less severe acute osteomyelitis than on the prior exam performed 08/26/2023) but noted septic tenosynovitis around the right flexor houses longus tendon in the posterior ankle, acute
on chronic septic arthritis of the right tibiotalar joint
- ESR mildly elevated, low CRP
- ID and Medical Lab Specialist consulted, help appreciated
# hypernatremia
resolved
Other problems: Pending Rx reconciliation
Chronic anemia macrocytic
HX ameya deficiency
Hgb at baseline hi 11s to low 12s
HX GI bleed
HX essential HTN
Gout: stable. Continue colchicine
DVT Px: SQH
Code: DNR confirmed by at bed side
IP MS
Total time spent to see the patient, examine the patient on the floor, review data and lab results, discuss treatment plan with patient, nursing staff around 55 minutes
Anticipated Discharge: 24 - 48 hours
Subjective/Interval History
-
Date of Service: April 14, 2024
No complaints
Objective Data
-
Vital Signs:
Vital Signs
Temp Pulse Resp BP Pulse Ox
98.4 F 85 18 138/84 98
04/14/24 07:30 04/14/24 07:30 04/14/24 07:30 04/14/24 07:30 04/14/24 07:30
I&O
04/13/24 04/14/24 04/15/24
06:59 06:59 06:59
Intake Total 720 / 720 1859
Balance 720 / 720 1859
--- NOTE | 2024-04-14 11:12 | WOUNDNOTE ---
WON RN note: Patient admitted with chronic osteomyelitis of R heel.
See H&P for complete history.
PMH:R rotator cuff tear, R shoulder bursitis with drainage, frequent falls, HTN,anemia, C diff, Pneumonia PI wounds on R buttock, and R heel osteomyelitis, septic tenosynovitis R ankle.
Wound Location and type/assessment: Patient Known to service, last seen 09/16/23. Received patient sitting in chair, stands and ambulates on own using walker. R buttock old unstageable PI now healed, scarring and dry skin visible. R heel with
chronic osteomyelitis, healing stage 4 PI with pale pink base, tiny opening, no odor. Periwound blanchable red and patches of dry flaky skin. L foot and heel intact per at bedside, she does daily wound care for . Patient follows as
outpatient at [facility], last seen on 01/06/24. Reviewed Podiatry, MRI report and I&D note.
Appetite: Good, encouraged protein in diet.
Pressure redistribution devices in place: Accumax, patient is ad adilene. Using Diabetic sneakers when ambulating.
Plan:Applied A&D ointment to R buttock and periwound skin on R heel. Local wound care applied to heel with adaptic, folded gauze and ирина per Podiatry recommendation. Will confirm orders with hospitalist and follow podiatry peripherally, assist as
needed. Updated care plan and will follow as needed.
Note to case management of equipment requested for discharge:None.
Recommend follow up with Podiatry and I&D upon discharge.
[2024-04-14] MEDS: TYLENOL 1000 MG PO (13:23)
--- NOTE | 2024-04-14 13:53 | W.PN.POD ---
Today's Communication
Today's Communication
Right heel wound
Assessment / Plan
-
Chronic right heel wound - stage 2
History of right calcaneal osteomyelitis - chronic
MRI reviewed and discussed. No signs of acute clinical infection. Recommend alginate to the wound daily, cover with 4x4 and ирина. No surgical plans per podiatry. Antibiotics per ID. He should follow up with his clerk rating outpatient. He may
weight bear as tolerated.
Subjective
Chief Complaint
Chronic right heel wound
Subjective
Patient awake, alert and oriented. No complaints of pain or constitutional symptoms.
Objective
Temp Pulse Resp BP Pulse Ox
98.4 F 85 18 138/84 98
04/14/24 07:30 04/14/24 07:30 04/14/24 07:30 04/14/24 07:30 04/14/24 07:30
04/13/24 05:24
04/13/24 05:24
Vital Signs and Lab results were reviewed.
Physical Exam
Physical Exam
Right foot with Palpable pulses, CFT WNL, There is a wound present on the posterolateral heel measuring 1 cm x 2 cm x 0.2 cm, it does not appear to probe. there is surrounding xerosis and irritation of the skin, no cellulitis, no calor, no
fluctuance. there is mild serous drainage only upon removal of the bandages. The ankle is stiff and arthritic.
--- NOTE | 2024-04-14 14:57 | W.DCSUMMARY ---
Discharge Summary
Discharge Data
Date of Admission: 04/12/24
Date of Discharge: 04/14/24
-
Pending Results: No
Hospital Course
83 years old male who presented to the hospital with concerns regarding increasing redness and drainage from the heel wound. Patient was evaluated by orthopedic tech and infectious diseases doctor. He did not have constitutional symptoms. ESR and CRP
were not elevated. He did not have leukocytosis. MRI was consistent with chronic right calcaneal osteomyelitis with no evidence of acute clinical infection. Patient did not receive antibiotics. Podiatry doctor recommended weight-bearing status
as tolerated. Patient was noticed to have elevated heart rate with blood pressure. He reported that he stopped taking his metoprolol. He was placed back on metoprolol with good response. Prescription was given for metoprolol. Patient remained
hemodynamically stable and was discharged home in a stable condition.
Discharge Plan
-
Patient Disposition: Home with Home Care
Discharge Diagnosis/Procedures: Chronic right heel wound - stage 2
History of right calcaneal osteomyelitis - chronic
Rapid heart rate with elevated blood pressure, you were placed back on metoprolol.
Diet: As tolerated
Activity Restrictions/Additional Instructions:
Wound Care Instructions
R heel: clean with saline, periwound apply A&D ointment to dry flaky skin, adaptic, folded gauze and ирина change daily and prn drainage.
R buttocks: clean with soap and water, A&D ointment daily and prn soilage.
Offload R heel when in bed as previously done.
Follow up with Podiatry and I&D
Referrals:
Nery Carver DPM [Active] - in two to three weeks
Oscar Veronica DO [Family Provider] -
Prescriptions:
New
metoprolol tartrate 25 mg Tablet
12.5 mg PO BID Qty: 60 0RF
Continued
acetaminophen [Tylenol Extra Strength] 500 mg Tablet
1,000 mg PO BID
pantoprazole 40 mg Tablet,Delayed Release (Dr/Ec)
40 mg PO DAILY
gabapentin 100 mg Capsule
100 mg PO DAILY PRN (Reason: neuropathic pain)
lisinopril-hydrochlorothiazide 20-12.5 mg Tablet
1 tab PO DAILY
Discharge Orders:
Discharge Patient (As Directed); Ordered 04/14/24
Ordered By: Kenia Aponte
Discharge Date and Time
Print Language: BAHRAINI
--- NOTE | 2024-04-14 15:11 | CM ---
Patient seen at bedside. Patient completed IMM and signed form placed on chart. Patient to transport and [facility]. Please fax clinical information to [phone]. CM attempted to reach [facility] and liaison
did not answer. CM awaiting response from referral. CM will continue to follow for discharge planning needs.
Plan; home with follow with [facility]
--- NOTE | 2024-04-14 15:19 | W.PN.ID1 ---
Date of Service
Date of Service: April 14, 2024
Today's Communication
Observe off abx. Local care to wound.
Assessment / Plan
Chronic right heel wound
Hx Right heel osteomyelitis
- received 6 weeks IV meropenam (08/29/23 - 10/10/23)
Hypertension
pancreatic cyst
iron deficiency anemia
GERD
right heel decubitus ulcer
Recommendations:
Right heel ulcer relatively stable, and without significant clinical evidence of infection, despite read of MRI. Suspect at least some of the MRI findings are related to prior osteomyelitis.
Would continue with local wound care to the area.
Superficial wound cultures polymicrobial and indicates superficial colonization. Blood cultures additionally have been ordered and are NGTD.
Observe off abx. If there is significant concern for osteo, would perform bone biopsy / bone culture while off abx for at least several days, after which abx therapy can be directed at recovered organisms.
Chief Complaint
-: Other (History of osteomyelitis)
Subjective / Review of Systems
Review of Systems: No Fever and No Chills
Vital Signs / Physical Exam
Vital Signs
Vital Signs
Temp Pulse Resp BP Pulse Ox
98.4 F 85 18 138/84 98
04/14/24 07:30 04/14/24 07:30 04/14/24 07:30 04/14/24 07:30 04/14/24 07:30
Physical Exam
Constitutional: No Acute Distress, Comfortable and Non-toxic
Cardiovascular: Regular Rate and S1/S2; Negative Murmur or Rub
Pulmonary: Clear and Symmetric; Negative Wheezes or Rales
Gastrointestinal: Soft, Non Tender, Non Distended and Normal Bowel Sounds
Skin: Warm and Dry; Negative Rash or Jaundice
Objective Data
Lab Data
Lab Results
04/13/24 05:24
04/13/24 05:24
ESR 23 mm/hour (0-20) H 04/12/24 10:10
Estimated Creat Clear 48 ml/min 04/13/24 05:24
Total Bilirubin 0.5 mg/dl (0.2-1.3) 04/12/24 10:10
AST 27 U/L (17-59) 04/12/24 10:10
ALT 14 U/L (0-50) 04/12/24 10:10
Alkaline Phosphatase 94 U/L (38-126) 04/12/24 10:10
C-Reactive Protein 7.90 mg/L (0.0-10.00) 04/13/24 05:24
Most recent labs reviewed.
Micro Results:
04/12/24 10:10 Wound Culture - Final
Heel - Right Gram Stain - Final
04/12/24 10:10 Blood Culture - Preliminary
Blood/Venous No Growth in 48 hours- Final report to follow
04/12/24 10:10 Blood Culture - Preliminary
Blood/Venous No Growth in 48 hours- Final report to follow
Imaging:
04/13/2024 MRI right lower extremity: 1. MILD ACUTE OSTEOMYELITIS in the POSTEROLATERAL CALCANEUS deep to an overlying wound (much less severe acute osteomyelitis than on the prior exam performed 08/26/2023). 2. SEVERE ACUTE on CHRONIC SEPTIC
ARTHRITIS of the RIGHT TIBIOTALAR JOINT with interval increase in osseous destruction in the distal tibia and proximal talus with acute osteomyelitis surrounding the joint. 3.3 cm rim-enhancing enhancing fluid collection protruding anteriorly from
the tibiotalar joint consistent with a septic joint effusion or abscess. 3. SEPTIC TENOSYNOVITIS around the FLEXOR HALLUCIS LONGUS TENDON in the posterior ankle which has increased since 08/26/2023. 4. Multiple large ossific fragments lateral
to the talus at the site of a chronic anterior talofibular ligament tear. 5. Severe hypoxic degeneration of the Achilles tendon.
6. Severe tendinosis of the posterior tibial tendon. 7. Severe acute on chronic denervation throughout the muscles of the right lower leg and foot.
04/12/2024 x-ray right heel: Tiny radiolucent lesion in the posterior calcaneus possibly a focus of osteomyelitis. This could be confirmed by MR examination if indicated clinically. Previously noted plain film changes suggestive of osteomyelitis
have resolved.
[2024-04-14 15:41] VITALS: BP 129/74
== END 2024-04-14 15:34 | disposition home health service (06) | DRG 539 ==
LOC: 3 WEST ACU 12:58
PROVIDERS: ADMITTING PHYSICIAN Internal Medicine; ATTENDING PHYSICIAN Internal Medicine; CONSULT PHYSICIAN Podiatrist; EMERGENCY PHYSICIAN Emergency Medicine; FAMILY PHYSICIAN Family Medicine; OTHER PHYSICIAN Internal Medicine Infectious Disease
DX: M86.671 Other chronic osteomyelitis, right ankle and foot (principal); L89.614 Pressure ulcer of right heel, stage 4; M00.871 Arthritis due to other bacteria, right ankle and foot; E87.0 Hyperosmolality and hypernatremia
CPT/HCPCS: 73650; 73723; 80048; 80053; 84145; 85025; 85027; 85652; 86140; 87040; 87070; 87077; 87147; 87205; 99285; A9575; J2185

== ENCOUNTER 2024-05-11 20:18 | Inpatient (IN) | payer OTHER, SELFPAY ==
[2024-05-04 14:12] VITALS: BMI 27.4
[2024-05-04 14:46] LABS: Hematocrit 36.8 % (39.0-52.0); Hemoglobin 12.1 g/dL (13.0-18.0); Mean Corp Hgb Conc. 32.9 g/dL (33.0-37.0); Mean Corpuscular Hgb 32.4 pg (27.0-31.0); Mean Corpuscular Volume 98.4 fL (80.0-94.0); Platelet Count 309 10^3/uL (130-400); Red Blood Cell Count 3.74 10^6/uL (4.70-6.10); Red Cell Dist. Width 14.3 % (11.5-14.5); White Blood Cell Count 10.2 10^3/uL (4.8-10.8)
[2024-05-11] VITALS (8 sets, daily range): BP systolic 12–133; BP diastolic 61–83; BMI 27.4; BMI 25.4
[2024-05-11] MEDS: NORMOSOL-R/PLASMALYTE-A 1000 IV (15:36)
[2024-05-11] MEDS: TYLENOL 1000 MG PO ×2 (15:37→21:00)
[2024-05-11] MEDS: CELEBREX 200 MG PO (15:37)
--- NOTE | 2024-05-11 18:34 | W.PN.SURGUPD ---
Surgical Update
Surgical Update
Patient s/p R bone biopsies and cultures
-Await results of 3x bone biopsies (tibia, talus, calcaneus) and 2x cultures (ankle, calcaneus)
-Hold antibiotics pending OR culture results
-Appreciate infectious disease recommendations
-Patient to be NWB to RLE with strict heel offloading in multipodus boot
-Podiatry will continue to follow
--- NOTE | 2024-05-11 18:55 | HPS.HSE ---
Family Physician
-
Family Physician: Oscar Veronica
Chief Complaint
-
Right heel infection
History of Present Illness
Patient is a 83-year-old male s/p right bone biopsies and cultures in OR with pediatry. Biopsies completed to right tibia, talus and calcaneus. Patient reports infection has been ongoing and needs to be cleared prior to getting a left knee
replacement. Podiatry elected to biopsy as outpatient treatments have been ineffective.
Medical History
Past Medical History
Past Medical History: Reports HTN and Other
Additional Past Medical History:
Anemia
History GI bleed
MATY
GERD
HTN
Past Surgical History: Reports Other
Additional Past Surgical History:
Left S1 TFES1
Right TKR
Ankle surgery
Social History
Tobacco: Non-smoker
Alcohol: Occasional
Drug: None
Personal:
Living: With Family
Family History
Family History: Not pertinent and Other (Father: , cardiac history; Mother: , Cancer)
Allergies / Home Medications
Allergies reflects when Allergies were last updated in [employer].
Home Medications with original date entered in [employer]
Allergy/Medication List:
Allergies
Allergy/AdvReac Type Severity Reaction Status Date / Time
cefepime Allergy AIN Verified 05/11/24 17:37
Penicillins Allergy Rash - Verified 05/11/24 15:16
tolerated
cefalozin
in 2016
Home Medications Table - record
�Medication �Instructions �Recorded �Confirmed
acetaminophen 500 mg tablet 1,000 mg PO BID Pain 12/19/23 05/11/24
(Tylenol Extra Strength)
gabapentin 100 mg capsule 100 mg PO DAILY PRN neuropathic 12/19/23 05/11/24
pain
lisinopril 20 1 tab PO DAILY Blood Pressure 12/19/23 05/11/24
mg-hydrochlorothiazide 12.5 mg
tablet
pantoprazole 40 mg tablet,delayed 40 mg PO DAILY Gastrointestinal 12/19/23 05/11/24
release Issue
metoprolol tartrate 25 mg tablet 12.5 mg PO DAILY 05/05/24 05/11/24
Review of Systems
-
History Source: Patient
Constitutional: Reports No Symptoms and See HPI
EENT: Reports No Symptoms and See HPI
Respiratory: Reports No Symptoms and See HPI
Cardiac: Reports No Symptoms and See HPI
Abdomen/GI: Reports No Symptoms and See HPI
: Reports No Symptoms and See HPI
Musculoskeletal: Reports Other (right foot pain)
Skin: Reports No Symptoms and See HPI
Neurological: Reports No Symptoms and See HPI
Endocrine: Reports No Symptoms and See HPI
Hematologic/Lymphatic: Reports No Symptoms and See HPI
Psych: Reports No Symptoms, See HPI and Calm
Physical Exam
Vital Signs
Vital Signs
Temp Pulse Resp BP Pulse Ox
98.2 F 77 16 133/74 98
05/11/24 15:19 05/11/24 15:19 05/11/24 15:19 05/11/24 15:19 05/11/24 15:19
Physical Exam
General: Well Developed, Well Nourished, No Apparent Distress, Comfortable, Conversant and Pain (denies at assessment, controlled); No Respiratory Distress
HEENT: NormoCephalic, Moist mucous membranes, Atraumatic, PERRLA, [place] Conjunctivae, Nose Appears Normal and Ears Appear Normal
Respiratory: Clear and Non Labored Respirations
Cardiac: S1/S2 and Regular Rhythm; No Murmur, Rub, Gallop or Peripheral Edema
Breast: Deferred by me
GI: Soft, Non Tender, Non Distended and Normal Bowel Sounds
Rectal: Deferred by Provider
Genito-urinary: Deferred by me
Musculoskeletal: No Clubbing, No Cyanosis and No Edema; No Edema, Left Upper Extremity, Edema, Right Upper Extremity, Edema, Left Lower Extremity or Edema, Right Lower Extremity
Skin: Warm and Dry
Neuro: Awake, Alert, AO x 3 and Cranial Nerves Intact
Hematologic/Lymphatic: No Lymphadenopathy
Psych: Calm and Intact Judgment/Insight
Laboratory Results
-
05/04/24 13:18
Data Reviewed
-
MRI: Report Reviewed by me (04/13/2024 MILD ACUTE OSTEOMYELITIS in the POSTEROLATERAL CALCANEUS, SEVERE ACUTE on CHRONIC SEPTIC ARTHRITIS of the RIGHT TIBIOTALAR JOINT, SEPTIC TENOSYNOVITIS around the FLEXOR HALLUCIS LONGUS TENDON in the posterior
ankle which has increased since 08/26/2023)
Lab Data: Labs Reviewed by me
Impression/Plan
-
IMPRESSION/PLAN:
#Osteomyelitis s/p biopsies to right tibia, talus and calcaneus with culture of ankle joint and calcaneus
- appreciate ID recs
- NWB RLE
- Multipodis boot
- dressing change 3x per week aquacell and DSD
- Consult podiatry
- Consult ID
- pain managment
#GERD
- continue pantoprazole
#HTN
- continue lisinopril-HCTZ, metoprolol
#MATY
- monitor BMP
#Anemia/History GI bleed
- monitor CBC
Full Code
Regular Diet
DVT Prophylaxis: SQ Heparin q12
--- NOTE | 2024-05-11 20:15 | PTCARENOTE ---
Patient is a 83-year-old male rrrived on unit at 20:12 post-op R Foot Wound Biopsies/Debridement of R Heel Wound (right bone biopsies and cultures in OR with pediatry. Biopsies completed to right tibia, talus and calcaneus). PMH Reports HTN,
Anemia,GI bleed, MATY, GERD Past Surgical History:Left S1 TFES1, Right TKR, Ankle surgery. Pt is AOX3, has already reported voiding a couple times in PACu and also since arriving on 2S. Pt reports no pain. R foot wound dressing. adaptic, 4x4, sandra
wrapped, no splint. Pt's bed in a low position, call light nearby, pt resting comfortable.
[2024-05-11] MEDS: HEPARIN 5000 UNITS SC (20:55)
[2024-05-12] VITALS (8 sets, daily range): BP systolic 102–147; BP diastolic 66–82; PULSE 78; O2SAT 99; BMI 25.4
--- NOTE | 2024-05-12 06:29 | W.PN.UPDATE ---
Update Note
Progress Note Update
Patient seen in conjunction with ECONOMETRICIAN, I agree with the findings on history and physical as well as the assessment and plan unless stated otherwise.
This is an 83-year-old male with past medical history of chronic osteomyelitis of the right foot and ankle, iron deficiency anemia, prior GI bleed, hypertension, pulmonary fibrosis who is postop day #0 status post a bone biopsy of the right tibia,
talus, calcaneus. There is an elective procedure after the patient has been managed conservatively for this chronic osteomyelitis. He was seen in the PACU and is doing well and in no acute distress.
His vital signs are stable, patient afebrile blood pressure 133/74 pulse 78 respiratory 16 with oxygen saturation of 96 on room air. Recent ECG within normal sinus rhythm and unchanged from prior. Recent CBC is unremarkable. Recent chemistries
unremarkable.
Biopsy done by podiatry and patient verified to medicine after completion of procedure.
Assessment and plan
Chronic R foot osteo -
- s/p biopsy
- regular diet
- holding abx for now
- ID consult
- dressing changes per ortho
- assist with pain control
- will obtain am labs
- continue home meds
DVT PPX - lovenox sq
Code Status - Full Code
[2024-05-12 06:48] LABS: % Basophils 0.6 % (0-2); % Eosinophils 5.2 % (0-6); % Immature Granulocytes 0.5 % (0-0.5); % Lymphocytes 15.1 % (20.5-51.1); % Monocytes 15.1 % (1.7-9.3); % Neutrophils 63.5 % (42.2-75.2); Absolute Basophils 0.1 10^3/uL (0-0.2); Absolute Eosinophils 0.4 10^3/uL (0-0.7); Absolute Lymphocytes 1.3 10^3/uL (1.2-3.4); Absolute Monocytes 1.3 10^3/uL (0.1-0.6); Absolute Neutrophils 5.4 10^3/uL (1.4-6.5); Hematocrit 31.8 % (39.0-52.0); Hemoglobin 10.7 g/dL (13.0-18.0); Mean Corp Hgb Conc. 33.6 g/dL (33.0-37.0); Mean Corpuscular Hgb 32.6 pg (27.0-31.0); Nucleated Red Blood Cells % 0 % (-); Platelet Count 222 10^3/uL (130-400); Red Blood Cell Count 3.28 10^6/uL (4.70-6.10); White Blood Cell Count 8.4 10^3/uL (4.8-10.8)
--- NOTE | 2024-05-12 07:11 | W.PN.SURGUPD ---
Surgical Update
Surgical Update
Patient s/p R heel and ankle bone biopsies and cultures 05/[address] Aguilar
-Patient seen and evaluated at bedside. Dressings remain intact
-Await results of 3x bone biopsies (tibia, talus, calcaneus) and 2x cultures (ankle, calcaneus)
-Hold antibiotics pending OR culture results
-Appreciate infectious disease recommendations
-Patient to be NWB to RLE with strict heel offloading in multipodus boot
-Podiatry will continue to follow
[2024-05-12 07:19] LABS: Blood Urea Nitrogen 32 mg/dl (9-20); Calcium 9.3 mg/dl (8.4-10.2); Carbon Dioxide 23 mmol/L (22-30); Chloride 104 mmol/L (98-107); Estimated Creatinine Clearance 44 ml/min; Glucose 92 mg/dl (70-99); Potassium 4.2 mmol/L (3.5-5.1); Sodium 140 mmol/L (135-145); eGFR > 60.00
[2024-05-12] MEDS: ZESTRIL 20 MG PO (08:52)
[2024-05-12] MEDS: LOPRESSOR 12.5 MG PO (08:52)
[2024-05-12] MEDS: ORETIC 12.5 MG PO (08:53)
[2024-05-12] MEDS: TYLENOL 1000 MG PO ×2 (08:53→20:28)
[2024-05-12] MEDS: HEPARIN 5000 UNITS SC ×2 (08:53→20:28)
[2024-05-12] MEDS: PROTONIX 40 MG PO (08:54)
--- NOTE | 2024-05-12 11:22 | CM ---
Addendum entered by Sheila Pérez RN 05/12/24 15:46:
CM discussed PT recommendation with patient and spouse. Referral sent via [facility]. Precert Will be required.
Addendum entered by Sheila Pérez RN 05/12/24 11:27:
DME in home includes: rolling walker, wheelchair, cane, shower chair, and shower rails.
Original Note:
Reviewed the chart notes and spoke with the patient at the bedside. The patient resides with his spouse, son, [id number], and multiple grandchildren in a two story structure with one step to enter. The patient and spouse reside on the first
level where there is a full bath and bedroom. The patient has had [facility] in the past and been to [facility]. The patient has had IV abx through [facility]. The patient confirmed his pharmacy of choice is [facility]. CM continues to be available to patient/family and is monitoring medical plan for needs at discharge.
Plan: Discharge plans will depend on the patient's progress. PT/OT evaluations pending.
--- NOTE | 2024-05-12 13:35 | CON.ID ---
Consultation
-
Date/Time Consultation Requested: 05/11/20242000
Date/Time Consultation Performed: 05/12/2024 1300
Requesting Provider: Khadijah Phelps
Performing Provider: Dr. Dawson
Reason for Consultation: Right foot osteomyelitis
Chief Complaint / Past History
History of Present Illness
Jayme Espinoza is an 83-year-old man being evaluated at the request of Khadijah Phelps in regards to possible right heel osteomyelitis. History is obtained from chart review, along with patient interview.
The patient is known to the Infectious Diseases service, having been seen in August for osteomyelitis of the right calcaneus and septic arthritis of the tibiotalar joint. He ultimately was discharged, to complete a 6-week course of meropenem. He
was again seen in mid March, again regarding issues surrounding the right calcaneus. At that point in time his had noted increasing drainage from the heel which reportedly had been getting worse. He was brought into the hospital and MRI
imaging was performed which was shown to be positive, but felt to be related to his prior history of osteomyelitis. Antibiotics were discontinued, and he was sent home to follow-up in the outpatient setting with both podiatry and Infectious Disease.
Ultimately he was brought into the hospital again for biopsy of the right calcaneal area, which was performed on 05/11. He has not recently been on antibiotics. His notes that he had been having some drainage from the right heel, but over the
past several days it has improved. Currently the patient denies any fevers or chills. He denies any pain in the area.
Past History
Additional Past Medical History:
Hypertension
pancreatic cyst
iron deficiency anemia
GERD
right heel decubitus ulcer
right buttocks
right calf ulcers
Additional Past Surgical History:
septic bursitis s/p IR drainage x 2
Allergy History:
cefepime (ADR) (Verified 05/11/24 17:37)
AIN
Penicillins (Allergy) (Verified 05/11/24 15:16)
Rash - tolerated cefazolin in 2016
Medications Reviewed: Yes
Current Antibiotics:
None
Social History
Tobacco: Non-Smoker
Alcohol: Occasional
Drug: None
Personal:
Living: With Family
Employment: Retired
Family History
Family History: Not Pertinent
Review of Systems
Vital Signs
Temp Pulse Resp BP Pulse Ox
97.7 F 79 18 126/77 99
05/12/24 11:15 05/12/24 11:15 05/12/24 11:15 05/12/24 11:15 05/12/24 11:15
Physical Exam
Physical Exam
Constitutional: No Acute Distress, Comfortable and Non-toxic
Head: Normocephalic
Eyes: Pupils Equal, Pupils Round, No Conjunctival Hemorrhage and Sclera Anicteric
Oral: No Thrush and No Ulcers
Cardiovascular: Regular Rate and S1/S2; Negative S3/S4
Pulmonary: Clear; Negative Wheezes, Rales or Rhonchi
Gastrointestinal: Soft, Non Tender, Non Distended and Normal Bowel Sounds
Extremities: Negative Edema, Cyanosis or Erythema
Skin: Warm and Dry; Negative Rash or Jaundice
Wound: Other (right heel drssed in [facility]. No erythema extending up leg.)
Neurological: Awake and Alert
Psychological: Calm
Lab / Diagnostic Study Results
05/12/24 05:07
05/12/24 05:07
Abs Immat Gran (auto) 0.0 10^3/uL (0-0.05) 05/12/24 05:07
Absolute Neuts (auto) 5.4 10^3/uL (1.4-6.5) 05/12/24 05:07
Absolute Lymphs (auto) 1.3 10^3/uL (1.2-3.4) 05/12/24 05:07
Absolute Monos (auto) 1.3 10^3/uL (0.1-0.6) H 05/12/24 05:07
Absolute Basos (auto) 0.1 10^3/uL (0-0.2) 05/12/24 05:07
Immature Gran % 0.5 % (0-0.5) 05/12/24 05:07
Neutrophils % 63.5 % (42.2-75.2) 05/12/24 05:07
Lymphocytes % 15.1 % (20.5-51.1) L 05/12/24 05:07
Monocytes % 15.1 % (1.7-9.3) H 05/12/24 05:07
Eosinophils % 5.2 % (0-6) 05/12/24 05:07
Basophils % 0.6 % (0-2) 05/12/24 05:07
Microbiology Results
Micro:
05/11/24 18:30 Anaerobic Culture - Preliminary
Ankle - Right Culture pending. Anaerobic cultures are examined after 3
days incubation. Additional information to follow.
05/11/24 18:30 Wound Culture - Preliminary
Ankle - Right Gram Stain - Pending
05/11/24 18:30 Anaerobic Culture - Preliminary
Heel - Right Culture pending. Anaerobic cultures are examined after 3
days incubation. Additional information to follow.
05/11/24 18:30 Wound Culture - Preliminary
Heel - Right Gram Stain - Pending
Imaging:
04/13/2024 MRI right lower extremity: MILD ACUTE OSTEOMYELITIS in the POSTEROLATERAL CALCANEUS deep to an overlying wound (much less severe acute osteomyelitis than on the prior exam performed 08/26/2023). 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
the RIGHT TIBIOTALAR JOINT with interval increase in osseous destruction in the distal tibia and proximal talus with acute osteomyelitis surrounding the joint. 3.3 cm rim-enhancing enhancing fluid collection protruding anteriorly from the tibiotalar
joint consistent with a septic joint effusion or abscess. SEPTIC TENOSYNOVITIS around the FLEXOR HALLUCIS LONGUS TENDON in the posterior ankle which has increased since 08/26/2023. Multiple large ossific fragments lateral to the talus at the site
of a chronic anterior talofibular ligament tear. Severe hypoxic degeneration of the Achilles tendon. Severe tendinosis of the posterior tibial tendon. Severe acute on chronic denervation throughout the muscles of the right lower leg and foot.
04/12/2024 x-ray right heel: Tiny radiolucent lesion in the posterior calcaneus possibly a focus of osteomyelitis. This could be confirmed by MR examination if indicated clinically. Previously noted plain film changes suggestive of osteomyelitis
have resolved.
Assessment / Plan
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
Hypertension
pancreatic cyst
iron deficiency anemia
GERD
right heel decubitus ulcer
right buttocks
right calf ulcers
Recommendations:
At present, observe off antibiotics.
Await biopsy cultures, along with pathology to guide antibiotic choice.
Local care to the surgical wound.
--- NOTE | 2024-05-12 13:51 | W.PN.HOSP.TC ---
Today's Communication/Plan
-
Continue PT/OT
Await culture results
Assessment / Plan
Assessment / Plan
Gen-AAOx3, NAD
HEENT-NC, AT, anicteric, clear oral mm
Neck-supple
CV-reg, no M, +S1/S2
Lungs-clear B/L
Abd-soft, NT, ND
Ext-no edema
Musculoskeletal-no cyanosis, clubbing
Skin-warm and dry
Neuro-grossly non-focal
Psych-calm, cooperative
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 Discussed with Dr. Dawson. Hold antibiotics pending culture and bone marrow biopsy results.
Ambulatory dysfunction -due to above. Continue PT/OT.
Right heel decubitus ulcer
GERD -pantoprazole.
History of GI bleed
Essential hypertension -stable.
No evidence of MATY
Chronic anemia -hemoglobin at baseline. Recommend outpatient follow-up.
Full code
Dispo - PT is recommending SNF. Updated on the phone. She agrees with SNF. Discussed with case management.
Anticipated Discharge: Within 24 hours
Subjective/Interval History
-
Date of Service: May 12, 2024
Patient seen and examined. No complaints.
Objective Data
-
Labs:
Laboratory Results
05/12/24
05:07
WBC 8.4
Hgb 10.7 L
Hct 31.8 L
Plt Count 222
Sodium 140
Potassium 4.2
Chloride 104
Carbon Dioxide 23
BUN 32 H
Creatinine 1.2
Glucose 92
Calcium 9.3
Vital Signs:
Vital Signs
Temp Pulse Resp BP Pulse Ox
97.7 F 79 18 126/77 99
05/12/24 11:15 05/12/24 11:15 05/12/24 11:15 05/12/24 11:15 05/12/24 11:15
I&O
05/11/24 05/12/24 05/13/24
06:59 06:59 06:59
Intake Total 720 / 720
Output Total 450 / 450
Balance 270 / 270
Review of Systems
-
History Source: Patient
All other systems: Reviewed and negative
--- NOTE | 2024-05-13 04:34 | DOWNTIME ---
There was a [employer] Downtime on 05/13/2024 from 0100 to 05/13/2024 at 0355. Downtime documentation of patient's care, including medication administrations, has been reconciled in the electronic record per guidelines. Refer to the
patient's paper chart under the miscellaneous tab to see printed paper medication records and downtime forms.
[2024-05-13] MEDS: LOPRESSOR 12.5 MG PO (07:39)
[2024-05-13 07:40] VITALS: BP 140/80
[2024-05-13] MEDS: ORETIC 12.5 MG PO (07:40)
[2024-05-13] MEDS: ZESTRIL 20 MG PO (07:40)
[2024-05-13] MEDS: TYLENOL 1000 MG PO ×2 (07:40→20:58)
[2024-05-13] MEDS: PROTONIX 40 MG PO (07:40)
[2024-05-13] MEDS: HEPARIN 5000 UNITS SC ×2 (07:41→20:58)
--- NOTE | 2024-05-13 10:06 | CM ---
Reviewed the chart notes and spoke with the patient's spouse via telephone. [facility] [place] will be able to accept once they know the IV abx that the patient is to be discharged on. IV abx cost is a factor in placement. Patient's
spouse in agreement with the facility. CM continues to be available to patient/family and is monitoring medical plan for needs at discharge.
[facility] [place] once it is determined which IV abx patient will require at discharge.
[2024-05-13 10:59] VITALS: BP 163/96; PULSE 85; O2SAT 98
--- NOTE | 2024-05-13 11:43 | W.PN.HOSP.TC ---
Addendum entered and electronically signed by Drew Palomino DO 05/13/24 13:25:
Chronic anemia of unclear etiology, recommend outpatient follow-up with PCP. This is not acute on chronic. Baseline hemoglobin ranges between 9.5 and 12.1. Hemoglobin currently at baseline.
Original Note:
Today's Communication/Plan
-
Discharge planning
Assessment / Plan
Assessment / Plan
Gen-AAOx3, NAD
HEENT-NC, AT, anicteric, clear oral mm
Neck-supple
CV-reg, no M, +S1/S2
Lungs-clear B/L
Abd-soft, NT, ND
Ext-no edema
Musculoskeletal-no cyanosis, clubbing
Skin-warm and dry
Neuro-grossly non-focal
Psych-calm, cooperative
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 Discussed with Dr. Dawson. Hold antibiotics pending culture and bone marrow biopsy results.
Ambulatory dysfunction -due to above. Continue PT/OT.
Right heel decubitus ulcer
GERD -pantoprazole.
History of GI bleed
Essential hypertension -stable.
No evidence of MATY
Chronic anemia -hemoglobin at baseline. Recommend outpatient follow-up.
Full code
Dispo - PT is recommending SNF. Updated on the phone. She agrees with SNF. Discussed with case management. Stable for discharge to SNF. However, SNF would like a plan of care regarding choice of antibiotics prior to excepting according to
case management.
Anticipated Discharge: Within 24 hours
Subjective/Interval History
-
Date of Service: May 13, 2024
Patient seen and examined. No complaints.
Objective Data
-
Vital Signs:
Vital Signs
Temp Pulse Resp BP Pulse Ox
97.8 F 100 18 140/80 97
05/13/24 07:40 05/13/24 07:40 05/13/24 07:40 05/13/24 07:40 05/13/24 07:40
I&O
05/12/24 05/13/24 05/14/24
06:59 06:59 06:59
Intake Total 720 / 720 1320 / 1320 240 / 240
Output Total 450 / 450 2200 / 2200
Balance 270 / 270 -880 / -880 240 / 240
Review of Systems
-
History Source: Patient
All other systems: Reviewed and negative
--- NOTE | 2024-05-13 11:51 | W.PN.ID1 ---
Date of Service
Date of Service: May 13, 2024
Today's Communication
Continue off antibiotics. Await further pathology/microbiology data.
Assessment / Plan
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
- s/p bx / culture
Hypertension
pancreatic cyst
iron deficiency anemia
GERD
right heel decubitus ulcer
right buttocks
right calf ulcers
Recommendations:
At present, observe off antibiotics.
Await biopsy cultures, along with pathology to guide antibiotic choice.
Local care to the surgical wound area.
����������������������������������������������������������
Chief Complaint
-: Other (Right foot osteomyelitis)
Subjective / Review of Systems
Review of Systems: No Fever and No Chills
Vital Signs / Physical Exam
Vital Signs
Vital Signs
Temp Pulse Resp BP Pulse Ox
97.8 F 100 18 140/80 97
05/13/24 07:40 05/13/24 07:40 05/13/24 07:40 05/13/24 07:40 05/13/24 07:40
Physical Exam
Constitutional: No Acute Distress, Comfortable and Non-toxic
Eyes: Sclera Anicteric
Cardiovascular: S1/S2; Negative S3/S4
Pulmonary: Non Labored
Extremities: Negative Edema, Cyanosis or Erythema
Wound: Other (Right heel area dressed in Loi wrap. No erythema extending up leg.)
Neurological: Awake and Alert
Psychological: Calm
Objective Data
Lab Data
Lab Results
05/12/24 05:07
05/12/24 05:07
Estimated Creat Clear 44 ml/min 05/12/24 05:07
Most recent labs reviewed.
Micro Results:
05/11/24 18:30 Wound Culture - Preliminary
Heel - Right Staphylococcus aureus
Gram Stain - Preliminary
05/11/24 18:30 Anaerobic Culture - Preliminary
Heel - Right Culture pending. Anaerobic cultures are examined after 3
days incubation. Additional information to follow.
05/11/24 18:30 Wound Culture - Preliminary
Ankle - Right Staphylococcus aureus
Gram Stain - Preliminary
05/11/24 18:30 Anaerobic Culture - Preliminary
Ankle - Right Culture pending. Anaerobic cultures are examined after 3
days incubation. Additional information to follow.
Imaging:
04/13/2024 MRI right lower extremity: MILD ACUTE OSTEOMYELITIS in the POSTEROLATERAL CALCANEUS deep to an overlying wound (much less severe acute osteomyelitis than on the prior exam performed 08/26/2023). 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
the RIGHT TIBIOTALAR JOINT with interval increase in osseous destruction in the distal tibia and proximal talus with acute osteomyelitis surrounding the joint. 3.3 cm rim-enhancing enhancing fluid collection protruding anteriorly from the tibiotalar
joint consistent with a septic joint effusion or abscess. SEPTIC TENOSYNOVITIS around the FLEXOR HALLUCIS LONGUS TENDON in the posterior ankle which has increased since 08/26/2023. Multiple large ossific fragments lateral to the talus at the site
of a chronic anterior talofibular ligament tear. Severe hypoxic degeneration of the Achilles tendon. Severe tendinosis of the posterior tibial tendon. Severe acute on chronic denervation throughout the muscles of the right lower leg and foot.
04/12/2024 x-ray right heel: Tiny radiolucent lesion in the posterior calcaneus possibly a focus of osteomyelitis. This could be confirmed by MR examination if indicated clinically. Previously noted plain film changes suggestive of osteomyelitis
have resolved.
Care Review
Plan reviewed with: Physician (Hospitalist)
--- NOTE | 2024-05-13 13:06 | PN.CDI ---
CDI
- -
CDI:
Physician Documentation Request
Admit Date: 05/11/24 20:18
Dear Doctor Candelario,
Please review the following and provide your response in the progress notes.
Clinical Indicators:
05/11 PROCEDURE:
#Right ankle arthrotomy, bone biopsies, heel wound debridement, and calcaneal bone biopsy.
PN, 05/13
#Chronic anemia -hemoglobin at baseline.
Laboratory Tests
05/04/24 05/12/24
13:18 05:07
Hgb 12.1 L 10.7 L
Hct 36.8 L 31.8 L
Based on the above and your clinical assessment, please which of the following is the most likely type of anemia you are evaluated, monitored and/or treated?
Acute blood loss anemia with baseline chronic anemia (Specify type)
Anemia of chronic disease - indicate if neoplastic disease, CKD or other
Chronic iron deficiency anemia due to blood loss
Other(please specify)
Use of terms such as suspected, likely, concern for, or probable (associated with a specific diagnosis that is being evaluated, monitored, or treated as if it exists) are acceptable and can be coded in the inpatient setting, when documented at the
time of discharge.
Thank you,
Bhumi Rizzo RN BSN CCDS
CDI Specialist
please contact via tiger text
Please use your independent medical judgment in providing your response.
[2024-05-13 16:00] VITALS: BP 151/97
[2024-05-13 23:05] VITALS: BP 117/72
[2024-05-14 07:25] VITALS: BP 122/76
[2024-05-14] MEDS: ZESTRIL 20 MG PO (07:35)
[2024-05-14] MEDS: LOPRESSOR 12.5 MG PO (07:35)
[2024-05-14] MEDS: PROTONIX 40 MG PO (07:35)
[2024-05-14] MEDS: TYLENOL 1000 MG PO ×2 (07:35→20:53)
[2024-05-14] MEDS: ORETIC 12.5 MG PO (07:35)
[2024-05-14] MEDS: HEPARIN 5000 UNITS SC ×2 (07:36→20:53)
--- NOTE | 2024-05-14 12:26 | W.PN.HOSP.TC ---
Today's Communication/Plan
-
Podiatry to change dressings
Await cultures
Assessment / Plan
Assessment / Plan
Gen-AAOx3, NAD
HEENT-NC, AT, anicteric, clear oral mm
Neck-supple
CV-reg, no M, +S1/S2
Lungs-clear B/L
Abd-soft, NT, ND
Ext-no edema
Musculoskeletal-no cyanosis, clubbing
Skin-warm and dry
Neuro-grossly non-focal
Psych-calm, cooperative
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 Discussed with Dr. Dawson. Hold antibiotics pending culture and bone marrow biopsy results. Preliminary culture shows staph aureus, sensitivity pending.
I informed Dr. Aguilar to change his dressings via [employer].
Ambulatory dysfunction -due to above. Continue PT/OT.
Right heel decubitus ulcer
GERD -pantoprazole.
History of GI bleed
Essential hypertension -stable.
No evidence of MATY
Chronic anemia -hemoglobin at baseline. Recommend outpatient follow-up.
Full code
Dispo - PT is recommending SNF. Updated on the phone. She agrees with SNF. Discussed with case management. Stable for discharge to SNF. However, SNF would like a plan of care regarding choice of antibiotics prior to excepting according to
case management.
Anticipated Discharge: Within 24 hours
Subjective/Interval History
-
Date of Service: May 14, 2024
Patient seen/examined, asking for leg dressing to be changed.
Objective Data
-
Vital Signs:
Vital Signs
Temp Pulse Resp BP Pulse Ox
97.8 F 83 16 122/76 97
05/14/24 07:25 05/14/24 07:25 05/14/24 07:25 05/14/24 07:35 05/14/24 07:25
I&O
05/13/24 05/14/24 05/15/24
06:59 06:59 06:59
Intake Total 1320 / 1320 1500 / 1500
Output Total 2200 / 2200 1260 / 1260
Balance -880 / -880 240 / 240
Review of Systems
-
History Source: Patient
All other systems: Reviewed and negative
--- NOTE | 2024-05-14 13:18 | W.PN.ID1 ---
Date of Service
Date of Service: May 14, 2024
Today's Communication
Continue off antibiotics for today, but place PICC line in anticipation of antibiotic initiation once full cultures returned.
Assessment / Plan
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
- s/p bx & culture
- cultures with S. aureus
Hypertension
pancreatic cyst
iron deficiency anemia
GERD
right heel decubitus ulcer
right buttocks
right calf ulcers
Recommendations:
Bone biopsy cultures have revealed the presence of Staph aureus, with susceptibilities still pending.
Given positive culture results, patient will likely require a 6-week course of IV antibiotics.
Okay to place PICC line at present, with antibiotic recommendations to follow once further culture results available.
Local care to the surgical wound area.
Also awaiting pathology.
����������������������������������������������������������
Chief Complaint
-: Other (Right foot osteomyelitis)
Subjective / Review of Systems
Review of Systems: No Fever and No Chills
Vital Signs / Physical Exam
Vital Signs
Vital Signs
Temp Pulse Resp BP Pulse Ox
97.8 F 83 16 122/76 97
05/14/24 07:25 05/14/24 07:25 05/14/24 07:25 05/14/24 07:35 05/14/24 07:25
Physical Exam
Constitutional: No Acute Distress, Comfortable and Non-toxic
Eyes: Sclera Anicteric
Cardiovascular: S1/S2; Negative S3/S4
Pulmonary: Non Labored
Extremities: Negative Edema, Cyanosis or Erythema
Wound: Other (Right heel area dressed in Loi wrap. No erythema extending up leg.)
Neurological: Awake and Alert
Psychological: Calm
Objective Data
Lab Data
Lab Results
05/12/24 05:07
05/12/24 05:07
Estimated Creat Clear 44 ml/min 05/12/24 05:07
Most recent labs reviewed.
Micro Results:
05/11/24 18:30 Anaerobic Culture - Preliminary
Ankle - Right NO ANAEROBES ISOLATED
05/11/24 18:30 Anaerobic Culture - Preliminary
Heel - Right Culture pending. Anaerobic cultures are examined after 3
days incubation. Additional information to follow.
05/11/24 18:30 Wound Culture - Preliminary
Heel - Right Staphylococcus aureus
Gram Stain - Preliminary
05/11/24 18:30 Wound Culture - Preliminary
Ankle - Right Staphylococcus aureus
Gram Stain - Preliminary
Imaging:
04/13/2024 MRI right lower extremity: MILD ACUTE OSTEOMYELITIS in the POSTEROLATERAL CALCANEUS deep to an overlying wound (much less severe acute osteomyelitis than on the prior exam performed 08/26/2023). 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
the RIGHT TIBIOTALAR JOINT with interval increase in osseous destruction in the distal tibia and proximal talus with acute osteomyelitis surrounding the joint. 3.3 cm rim-enhancing enhancing fluid collection protruding anteriorly from the tibiotalar
joint consistent with a septic joint effusion or abscess. SEPTIC TENOSYNOVITIS around the FLEXOR HALLUCIS LONGUS TENDON in the posterior ankle which has increased since 08/26/2023. Multiple large ossific fragments lateral to the talus at the site
of a chronic anterior talofibular ligament tear. Severe hypoxic degeneration of the Achilles tendon. Severe tendinosis of the posterior tibial tendon. Severe acute on chronic denervation throughout the muscles of the right lower leg and foot.
04/12/2024 x-ray right heel: Tiny radiolucent lesion in the posterior calcaneus possibly a focus of osteomyelitis. This could be confirmed by MR examination if indicated clinically. Previously noted plain film changes suggestive of osteomyelitis
have resolved.
Care Review
Plan reviewed with: Physician (Hospitalist)
--- NOTE | 2024-05-14 14:57 | CM ---
Reviewed the chart notes. CM continues to be available to patient/family and is monitoring medical plan for needs at discharge.
Plan: Discharge to SNF/rehab once IV abx is determined. Hopefully [facility]. Precert will be required.
[2024-05-14 15:15] VITALS: BP 127/76
[2024-05-14 16:02] VITALS: BP 127/76
--- NOTE | 2024-05-14 16:51 | W.PN.UPDATE ---
Update Note
Progress Note Update
Patient s/p R heel and ankle bone biopsies and cultures 05/11
-Patient seen and evaluated at bedside. Dressings changed
-Await results of 3x bone biopsies (tibia, talus, calcaneus) and 2x cultures (ankle, calcaneus)
-Hold antibiotics pending OR culture results
-Appreciate infectious disease recommendations
-Patient to be NWB to RLE with strict heel offloading in multipodus boot
-Podiatry will continue to follow
[2024-05-14 23:06] VITALS: BP 108/52
--- NOTE | 2024-05-15 07:09 | W.PN.SURGUPD ---
Surgical Update
Surgical Update
Patient s/p R heel and ankle bone biopsies and cultures 05/[address] Aguilar
-Patient seen and evaluated at bedside. Dressings changed yesterday 05/14. Dressings can be changed 3x weekly moving forward (MWF) with betadine, gauze, ABD pads, ирина wrap, and DEJUAN bandage.
-Await results of 3x bone biopsies (tibia, talus, calcaneus) and 2x cultures (ankle, calcaneus)
-Appreciate infectious disease recommendations
-Patient to be NWB to RLE with strict heel offloading in multipodus boot
-Podiatry will continue to follow
[2024-05-15 07:25] VITALS: BP 141/70
[2024-05-15] MEDS: HEPARIN 5000 UNITS SC ×2 (09:48→19:28)
[2024-05-15] MEDS: LOPRESSOR 12.5 MG PO (09:51)
[2024-05-15] MEDS: PROTONIX 40 MG PO (09:51)
[2024-05-15] MEDS: TYLENOL 1000 MG PO ×2 (09:51→19:28)
[2024-05-15] MEDS: ORETIC 12.5 MG PO (09:52)
[2024-05-15] MEDS: ZESTRIL 20 MG PO (09:52)
[2024-05-15] MEDS: ANCEF 10 IV ×2 (10:08→22:42)
--- NOTE | 2024-05-15 10:28 | CM ---
Addendum entered by Carolyn Bonner 05/15/24 15:22:
Reached admissions at [facility] and Sarbjit director mortgage indicated that he did not have available bed for patient. Updated patient that [facility] and she requested CM check in with [facility] to determine if they have
an available bed. VM left.
Sruthi at [facility] would have a bed, unable to confirm on all scripts did so verbally. [facility] ; NPI for Dr. Jerilyn [id number]. They requested PICC to be faxed to [phone].
When auth in place; if family in agreement Please fax to [phone]//report to [phone] [facility]
Addendum entered by Carolyn Bonner 05/15/24 12:26:
call back and spoke with Liaison/Admissions at [facility], update provided and awaiting confirmation of bed availability to start patient. Patient and seen at bedside. They are aware of need to confirm bed and auth. Patient states [place] is the requested back up if needed.
Original Note:
Patient IV script is for Cefazolin and CM called to [facility], VM left for admissions requesting update to start auth.
--- NOTE | 2024-05-15 12:13 | W.PN.ID1 ---
Date of Service
Date of Service: May 15, 2024
Today's Communication
Continue cefazolin.
Assessment / Plan
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
- s/p bx & culture
- cultures with S. aureus and CoNS
Hypertension
pancreatic cyst
iron deficiency anemia
GERD
right heel decubitus ulcer
right buttocks
right calf ulcers
Recommendations:
Bone biopsy cultures have revealed the presence of Staph aureus, with susceptibilities still pending.
Given positive culture results, patient will likely require a 6-week course of IV antibiotics.
PICC line placed
Patient has been started on cefazolin 2 g IV every 12 hours. IV sheet has been given to Case Management.
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 Will closely monitor creatinine with twice weekly BMP.
Local care to the surgical wound area.
Also awaiting pathology.
����������������������������������������������������������
Chief Complaint
-: Other (Right foot osteomyelitis)
Subjective / Review of Systems
Review of Systems: No Fever and No Chills
Vital Signs / Physical Exam
Vital Signs
Vital Signs
Temp Pulse Resp BP Pulse Ox
98.0 F 93 16 141/70 97
05/15/24 07:25 05/15/24 07:25 05/15/24 07:25 05/15/24 07:25 05/15/24 07:25
Physical Exam
Constitutional: No Acute Distress, Comfortable and Non-toxic
Eyes: Sclera Anicteric
Cardiovascular: S1/S2; Negative S3/S4
Pulmonary: Non Labored
Extremities: Negative Edema, Cyanosis or Erythema
Wound: Other (Right heel area dressed in Loi wrap. No erythema extending up leg.)
Neurological: Awake and Alert
Psychological: Calm
Objective Data
Lab Data
Lab Results
05/12/24 05:07
05/12/24 05:07
Estimated Creat Clear 44 ml/min 05/12/24 05:07
Most recent labs reviewed.
Micro Results:
05/11/24 18:30 Anaerobic Culture - Preliminary
Heel - Right Culture pending. Anaerobic cultures are examined after 3
days incubation. Additional information to follow.
05/11/24 18:30 Wound Culture - Preliminary
Ankle - Right S aureus-Methicillin Sensitive
Coagulase neg. staphylococcus
Gram Stain - Preliminary
05/11/24 18:30 Wound Culture - Preliminary
Heel - Right S aureus-Methicillin Sensitive
Coagulase neg. staphylococcus
Gram Stain - Preliminary
05/11/24 18:30 Anaerobic Culture - Preliminary
Ankle - Right NO ANAEROBES ISOLATED
Imaging:
04/13/2024 MRI right lower extremity: MILD ACUTE OSTEOMYELITIS in the POSTEROLATERAL CALCANEUS deep to an overlying wound (much less severe acute osteomyelitis than on the prior exam performed 08/26/2023). 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
the RIGHT TIBIOTALAR JOINT with interval increase in osseous destruction in the distal tibia and proximal talus with acute osteomyelitis surrounding the joint. 3.3 cm rim-enhancing enhancing fluid collection protruding anteriorly from the tibiotalar
joint consistent with a septic joint effusion or abscess. SEPTIC TENOSYNOVITIS around the FLEXOR HALLUCIS LONGUS TENDON in the posterior ankle which has increased since 08/26/2023. Multiple large ossific fragments lateral to the talus at the site
of a chronic anterior talofibular ligament tear. Severe hypoxic degeneration of the Achilles tendon. Severe tendinosis of the posterior tibial tendon. Severe acute on chronic denervation throughout the muscles of the right lower leg and foot.
04/12/2024 x-ray right heel: Tiny radiolucent lesion in the posterior calcaneus possibly a focus of osteomyelitis. This could be confirmed by MR examination if indicated clinically. Previously noted plain film changes suggestive of osteomyelitis
have resolved.
[2024-05-15 12:28] VITALS: BP 132/81; PULSE 81; O2SAT 99
--- NOTE | 2024-05-15 12:33 | W.PN.HOSP.TC ---
Today's Communication/Plan
-
Discharge planning
Assessment / Plan
Assessment / Plan
Gen-AAOx3, NAD
HEENT-NC, AT, anicteric, clear oral mm
Neck-supple
CV-reg, no M, +S1/S2
Lungs-clear B/L
Abd-soft, NT, ND
Ext-no edema
Musculoskeletal-no cyanosis, clubbing
Skin-warm and dry
Neuro-grossly non-focal
Psych-calm, cooperative
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 Discussed with Dr. Dawson. Wound culture positive for MSSA. IV cefazolin per infectious disease. PICC line placed.
Ambulatory dysfunction -due to above. Continue PT/OT.
Right heel decubitus ulcer
GERD -pantoprazole.
History of GI bleed
Essential hypertension -stable.
No evidence of MATY
Chronic anemia -hemoglobin at baseline. Recommend outpatient follow-up.
Full code
Dispo -awaiting SNF placement.
Anticipated Discharge: Within 24 hours
Subjective/Interval History
-
Date of Service: May 15, 2024
Patient seen and examined. No new complaints.
Objective Data
-
Vital Signs:
Vital Signs
Temp Pulse Resp BP Pulse Ox
98.0 F 93 16 141/70 97
05/15/24 07:25 05/15/24 07:25 05/15/24 07:25 05/15/24 07:25 05/15/24 07:25
I&O
05/14/24 05/15/24 05/16/24
06:59 06:59 06:59
Intake Total 1500 / 1500 480 / 480
Output Total 1260 / 1260 725 / 725
Balance 240 / 240 -245 / -245
Review of Systems
-
History Source: Patient
All other systems: Reviewed and negative
[2024-05-15 14:17] VITALS: BP 133/95; PULSE 97; O2SAT 98
[2024-05-15 15:14] VITALS: BP 126/71
[2024-05-15 23:27] VITALS: BP 115/58
[2024-05-16 07:15] VITALS: BP 121/67
[2024-05-16] MEDS: PROTONIX 40 MG PO (07:37)
[2024-05-16] MEDS: LOPRESSOR 12.5 MG PO (07:37)
[2024-05-16] MEDS: TYLENOL 1000 MG PO ×2 (07:37→20:19)
[2024-05-16] MEDS: ORETIC 12.5 MG PO (07:38)
[2024-05-16] MEDS: HEPARIN 5000 UNITS SC ×2 (07:38→20:19)
[2024-05-16] MEDS: ZESTRIL 20 MG PO (07:38)
[2024-05-16] MEDS: FLUSH (NSS) 1 FLUSH IV (07:38)
[2024-05-16] MEDS: ANCEF 10 IV ×2 (10:04→22:02)
--- NOTE | 2024-05-16 11:00 | CM ---
Patient requested referral to [facility] and referral sent 05/15 no response. [facility] awaiting family confirmation and will start auth with [employer].
Plan; SNF
--- NOTE | 2024-05-16 13:34 | W.PN.HOSP.TC ---
Today's Communication/Plan
-
Discharge planning
Assessment / Plan
Assessment / Plan
Gen-AAOx3, NAD
HEENT-NC, AT, anicteric, clear oral mm
Neck-supple
CV-reg, no M, +S1/S2
Lungs-clear B/L
Abd-soft, NT, ND
Ext-no edema
Musculoskeletal-no cyanosis, clubbing
Skin-warm and dry
Neuro-grossly non-focal
Psych-calm, cooperative
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 Discussed with Dr. Dawson. Wound culture positive for MSSA. IV cefazolin per infectious disease. PICC line placed.
Ambulatory dysfunction -due to above. Continue PT/OT.
Right heel decubitus ulcer
GERD -pantoprazole.
History of GI bleed
Essential hypertension -stable.
No evidence of MATY
Chronic anemia -hemoglobin at baseline. Recommend outpatient follow-up.
Full code
Dispo -awaiting SNF placement. Medically stable for discharge. Discussed with at the bedside. Updated case management.
Anticipated Discharge: Within 24 hours
Subjective/Interval History
-
Date of Service: May 16, 2024
Patient seen and examined. No complaints.
Objective Data
-
Vital Signs:
Vital Signs
Temp Pulse Resp BP Pulse Ox
98.0 F 93 16 121/67 97
05/16/24 07:15 05/16/24 07:38 05/16/24 07:15 05/16/24 07:38 05/16/24 07:15
I&O
05/15/24 05/16/24 05/17/24
06:59 06:59 06:59
Intake Total 480 / 480 1140 / 1140
Output Total 725 / 725 750 / 750
Balance -245 / -245 390 / 390
Review of Systems
-
History Source: Patient
All other systems: Reviewed and negative
--- NOTE | 2024-05-16 16:01 | CM ---
Patient requested CM start auth request for [facility] and confirmed no response from [facility].
Plan; SNF pending auth
[2024-05-16 16:11] VITALS: BP 141/78
[2024-05-16 23:26] VITALS: BP 96/59
[2024-05-17 07:21] VITALS: BP 101/64
[2024-05-17] MEDS: TYLENOL 1000 MG PO ×2 (07:27→19:56)
[2024-05-17] MEDS: ZESTRIL 20 MG PO (07:27)
[2024-05-17] MEDS: LOPRESSOR 12.5 MG PO (07:27)
[2024-05-17] MEDS: ORETIC 12.5 MG PO (07:27)
[2024-05-17] MEDS: PROTONIX 40 MG PO (07:27)
[2024-05-17] MEDS: HEPARIN 5000 UNITS SC ×2 (07:28→19:56)
[2024-05-17] MEDS: FLUSH (NSS) 1 FLUSH IV (07:29)
[2024-05-17] MEDS: ANCEF 10 IV ×2 (09:46→22:02)
--- NOTE | 2024-05-17 12:52 | W.PN.HOSP.TC ---
Today's Communication/Plan
-
Discharge planning
Assessment / Plan
Assessment / Plan
Gen-AAOx3, NAD
HEENT-NC, AT, anicteric, clear oral mm
Neck-supple
CV-reg, no M, +S1/S2
Lungs-clear B/L
Abd-soft, NT, ND
Ext-no edema
Musculoskeletal-no cyanosis, clubbing
Skin-warm and dry
Neuro-grossly non-focal
Psych-calm, cooperative
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 Discussed with Dr. Dawson. Wound culture positive for MSSA. IV cefazolin per infectious disease. PICC line placed.
Ambulatory dysfunction -due to above. Continue PT/OT.
Right heel decubitus ulcer
GERD -pantoprazole.
History of GI bleed
Essential hypertension -stable.
No evidence of MATY
Chronic anemia -hemoglobin at baseline. Recommend outpatient follow-up.
Full code
Dispo -awaiting SNF placement. Medically stable for discharge. Updated case management.
Anticipated Discharge: Within 24 hours
Subjective/Interval History
-
Date of Service: May 17, 2024
Patient seen and examined. No complaints.
Objective Data
-
Vital Signs:
Vital Signs
Temp Pulse Resp BP Pulse Ox
98.2 F 91 18 101/64 97
05/17/24 07:21 05/17/24 07:21 05/17/24 07:21 05/17/24 07:27 05/17/24 07:21
I&O
05/16/24 05/17/24 05/18/24
06:59 06:59 06:59
Intake Total 1140 / 1140 960 / 960 250 / 250
Output Total 750 / 750 1200 / 1200 100 / 100
Balance 390 / 390 -240 / -240 150 / 150
Review of Systems
-
History Source: Patient
All other systems: Reviewed and negative
[2024-05-17 15:00] VITALS: BP 118/62
--- NOTE | 2024-05-17 15:13 | CM ---
Addendum entered by Carolyn Bonner 05/17/24 15:51:
Patient to transport in am. CM updated physician.
Addendum entered by Carolyn Bonner 05/17/24 15:22:
CM spoke with nursing sup at [facility] and provided auth. CM will continue to work on discharge to SNF tomorrow.
Original Note:
CM submitted Auth request via [employer] and approval obtained for start of care tomorrow 05/18/24. Auth cert number is [id number] for 7 days to [facility] per Sruthi. Please call report to [phone]/fax [phone]. REX updated Nichols with
at [facility]. Patient will need to complete IMM, plan for transfer tomorrow. CM will continue to follow for discharge planning needs.
Plan; SNF; [facility]
--- NOTE | 2024-05-17 15:52 | W.DS.TRANS ---
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
-
Discharge Instructions:
Sleep Apnea Risk Intermediate
Discharge Diagnosis/Procedures Right calcaneal osteomyelitis, ambulatory
dysfunction
Diet Regular
Activity As tolerated
Driving Restrictions Not until seen by your Dr
Bathing Restrictions None
Instructions:
Stand-Alone Forms:
Changes to Home Medications: No
Discharge Medications:
DC Medications w/original date entered in [facility]
acetaminophen 500 mg tablet (Tylenol Extra Strength) 1,000 mg PO BID Pain 12/19/23
gabapentin 100 mg capsule 100 mg PO DAILY PRN neuropathic pain 12/19/23
lisinopril 20 mg-hydrochlorothiazide 12.5 mg tablet 1 tab PO DAILY Blood Pressure 12/19/23
pantoprazole 40 mg tablet,delayed release 40 mg PO DAILY Gastrointestinal Issue 12/19/23
metoprolol tartrate 25 mg tablet 12.5 mg PO DAILY 05/05/24
cefazolin 10 gram solution for injection 2 g IV Q12H #0 ea 05/15/24
Home Medication Changes
Pending Results: No
[2024-05-17 23:05] VITALS: BP 91/43
[2024-05-18 07:45] VITALS: BP 131/79
[2024-05-18] MEDS: HEPARIN 5000 UNITS SC (09:03)
[2024-05-18] MEDS: ZESTRIL 20 MG PO (09:05)
[2024-05-18] MEDS: LOPRESSOR 12.5 MG PO (09:05)
[2024-05-18] MEDS: TYLENOL 1000 MG PO (09:05)
[2024-05-18] MEDS: ORETIC 12.5 MG PO (09:05)
[2024-05-18] MEDS: PROTONIX 40 MG PO (09:05)
[2024-05-18] MEDS: ANCEF 10 IV (09:11)
--- NOTE | 2024-05-18 09:12 | CM ---
Pt for transfer to [facility] today
Auth obtained and info given to Sruthi previously
Discussed IMM with pt
Pts to transport
Plan - transfer to [facility]
R - [phone]
F - [phone]
[2024-05-18 12:10] VITALS: BP 132/69
--- NOTE | 2024-05-18 12:29 | W.PN.ID1 ---
Date of Service
Date of Service: May 18, 2024
Today's Communication
Continue abx.
Assessment / Plan
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
- s/p bx & culture
- cultures with S. aureus and CoNS
Hypertension
pancreatic cyst
iron deficiency anemia
GERD
right heel decubitus ulcer
right buttocks
right calf ulcers
Recommendations:
Bone path without evidence of osteomyelitis but bone biopsy cultures have revealed the presence of Staph aureus (MSSA)
Given positive culture results, patient to receive a 6-week course of IV antibiotics.
PICC line placed
Patient has been started on cefazolin 2 g IV every 12 hours. IV sheet has been given to Case Management.
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 Will closely monitor creatinine with twice weekly BMP.
Follow-up in office in 2-3 weeks
Local care to the surgical wound area.
����������������������������������������������������������
Chief Complaint
-: Other (Right foot osteomyelitis)
Subjective / Review of Systems
Review of Systems: No Fever and No Chills
Vital Signs / Physical Exam
Vital Signs
Vital Signs
Temp Pulse Resp BP Pulse Ox
97.9 F 83 16 132/69 97
05/18/24 12:10 05/18/24 12:10 05/18/24 12:10 05/18/24 12:10 05/18/24 12:10
Physical Exam
Constitutional: No Acute Distress, Comfortable and Non-toxic
Eyes: Sclera Anicteric
Pulmonary: Non Labored
Extremities: Edema; Negative Erythema
Wound: Other (right ankle wrapped in DEJUAN. )
Neurological: Awake and Alert
Psychological: Calm
Objective Data
Lab Data
Lab Results
05/12/24 05:07
05/12/24 05:07
Estimated Creat Clear 44 ml/min 05/12/24 05:07
Most recent labs reviewed.
Micro Results:
05/11/24 18:30 Wound Culture - Preliminary
Heel - Right S aureus-Methicillin Sensitive
Coagulase neg. staphylococcus
Gram Stain - Preliminary
05/11/24 18:30 Anaerobic Culture - Final
Ankle - Right NO ANAEROBES ISOLATED
05/11/24 18:30 Anaerobic Culture - Final
Heel - Right NO ANAEROBES ISOLATED
05/11/24 18:30 Wound Culture - Preliminary
Ankle - Right S aureus-Methicillin Sensitive
Coagulase neg. staphylococcus
Gram Stain - Preliminary
Imaging:
04/13/2024 MRI right lower extremity: MILD ACUTE OSTEOMYELITIS in the POSTEROLATERAL CALCANEUS deep to an overlying wound (much less severe acute osteomyelitis than on the prior exam performed 08/26/2023). 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
the RIGHT TIBIOTALAR JOINT with interval increase in osseous destruction in the distal tibia and proximal talus with acute osteomyelitis surrounding the joint. 3.3 cm rim-enhancing enhancing fluid collection protruding anteriorly from the tibiotalar
joint consistent with a septic joint effusion or abscess. SEPTIC TENOSYNOVITIS around the FLEXOR HALLUCIS LONGUS TENDON in the posterior ankle which has increased since 08/26/2023. Multiple large ossific fragments lateral to the talus at the site
of a chronic anterior talofibular ligament tear. Severe hypoxic degeneration of the Achilles tendon. Severe tendinosis of the posterior tibial tendon. Severe acute on chronic denervation throughout the muscles of the right lower leg and foot.
04/12/2024 x-ray right heel: Tiny radiolucent lesion in the posterior calcaneus possibly a focus of osteomyelitis. This could be confirmed by MR examination if indicated clinically. Previously noted plain film changes suggestive of osteomyelitis
have resolved.
--- NOTE | 2024-05-18 13:07 | W.PN.HOSP.TC ---
Today's Communication/Plan
-
wound care as directed by podiatry; cont iv abx; f/u bmp twice weekly
f/u pcp, podiatry, ID outpatient
Assessment / Plan
Assessment / Plan
Gen-AAOx3, NAD
HEENT-NC, AT, anicteric, clear oral mm
Neck-supple
CV-reg, no M, +S1/S2
Lungs-clear B/L
Abd-soft, NT, ND
Ext-no edema
Musculoskeletal-no cyanosis, clubbing
Skin-warm and dry; foot in boot (R)
Neuro-grossly non-focal
Psych-calm, cooperative
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 Discussed with Dr. Dawson. Wound culture positive for MSSA. IV cefazolin per infectious disease. PICC line placed. BMP twice daily; Wound care and boot as per podiatry. F/u
Podiatry, ID outpatient
Ambulatory dysfunction -due to above. Continue PT/OT.
Right heel decubitus ulcer - see plan above for wound
GERD -pantoprazole.
History of GI bleed
Essential hypertension -stable.
No evidence of MATY
Chronic anemia -hemoglobin at baseline. Recommend outpatient follow-up.
Full code
Dispo -awaiting SNF placement. Medically stable for discharge. Updated case management.
More than 30 minutes spent in discharge including
Final examination of the patient
Summarizing hospital stay
Instructions for continuing care to all relevant caregivers
Preparation of discharge records, prescriptions, and referral forms
Total time spent (35 in minutes):
Anticipated Discharge: Today
Subjective/Interval History
-
Date of Service: May 18, 2024
no acute events
Objective Data
-
Vital Signs:
Vital Signs
Temp Pulse Resp BP Pulse Ox
97.9 F 83 16 132/69 97
05/18/24 12:10 05/18/24 12:10 05/18/24 12:10 05/18/24 12:10 05/18/24 12:10
I&O
05/17/24 05/18/24 05/19/24
06:59 06:59 06:59
Intake Total 960 / 960 490 / 490 360 / 360
Output Total 1200 / 1200 800 / 800 300 / 300
Balance -240 / -240 -310 / -310 60 / 60
Review of Systems
-
History Source: Patient
All other systems: Not reviewed unless documented
Physical Exam
-
General: No Apparent Distress
HEENT: Moist Mucous Membranes
Respiratory: Clear to Auscultation
Cardiac: Regular Rhythm and S1/S2
GI: Soft and Nontender
Neuro: AO x 3
Data Reviewed
-
Labs: Labs Reviewed by me
--- NOTE | 2024-05-18 13:16 | W.DS.TRANS ---
DC Summary - [employer]
-
Discharge Instructions:
Sleep Apnea Risk Intermediate
Discharge Diagnosis/Procedures Right calcaneal osteomyelitis, ambulatory
dysfunction
Diet Regular
Activity As tolerated
Driving Restrictions Not until seen by your Dr
Bathing Restrictions None
Blood Work Will closely monitor creatinine with twice
weekly BMP.
Instructions:
Stand-Alone Forms:
Changes to Home Medications: Yes
Discharge Medications:
DC Medications w/original date entered in [employer]
acetaminophen 500 mg tablet (Tylenol Extra Strength) 1,000 mg PO BID Pain 12/19/23
gabapentin 100 mg capsule 100 mg PO DAILY PRN neuropathic pain 12/19/23
lisinopril 20 mg-hydrochlorothiazide 12.5 mg tablet 1 tab PO DAILY Blood Pressure 12/19/23
pantoprazole 40 mg tablet,delayed release 40 mg PO DAILY Gastrointestinal Issue 12/19/23
metoprolol tartrate 25 mg tablet 12.5 mg PO DAILY 05/05/24
cefazolin 10 gram solution for injection 2 g IV Q12H #0 ea 05/15/24
Home Medication Changes
cefazolin 10 gram solution for injection 2 g IV Q12H #0 ea 05/15/24
Pending Results: No
== END 2024-05-18 12:52 | DRG 478 ==
LOC: 2 SOUTH 20:18
PROVIDERS: Nurse Practitioner Family; Student in an Organized Health Care Education/Training Program; ADMITTING PHYSICIAN Internal Medicine; ATTENDING PHYSICIAN Internal Medicine; CONSULT PHYSICIAN Internal Medicine Infectious Disease; FAMILY PHYSICIAN Family Medicine
PROC: 0QBL0ZX Excision of Right Tarsal, Open Approach, Diagnostic (ICD-10-PCS; 2024-05-11)
PROC: 0QBG0ZX Excision of Right Tibia, Open Approach, Diagnostic (ICD-10-PCS; 2024-05-11)
DX: M86.8X7 Other osteomyelitis, ankle and foot (principal); M00.871 Arthritis due to other bacteria, right ankle and foot; K21.9 Gastro-esophageal reflux disease without esophagitis; I10 Essential (primary) hypertension; D50.9 Iron deficiency anemia, unspecified; L89.619 Pressure ulcer of right heel, unspecified stage; B95.61 Methicillin susceptible Staphylococcus aureus infection as the cause of diseases classified elsewhere; R26.2 Difficulty in walking, not elsewhere classified
CPT/HCPCS: 88304; 88311; 71045; 80048; 85025; 85027; 87070; 87075; 87147; 87186; 87205; 93005; 97110; 97162; 97166; 97530

== ENCOUNTER → 2024-11-16 07:46 | Outpatient (REF) | payer OTHER, SELFPAY | LOC: RAD 07:46 | PROVIDERS: ATTENDING PHYSICIAN Student in an Organized Health Care Education/Training Program; FAMILY PHYSICIAN Family Medicine | DX: I73.9 Peripheral vascular disease, unspecified (principal) | CPT/HCPCS: 93923; 93925 ==